=== PATIENT | male | born 1950 | race Caucasian/White ===

== ENCOUNTER 2019-10-27 10:04 | Inpatient (IN) ==
--- NOTE | 2019-10-27 10:58 | PROVIDER DOCUMENTATION ---
This chart was entered by Kavita Peraza Scribe, acting as scribe for Nayeli Falk MD. HPI-General Adult - General Chief Complaint: Diarrhea Stated Complaint: "SICK ALL OVER" Time Seen by Provider: 10/27/19 10:21 Source: patient Allergies/Adverse Reactions: Patient Allergies Allergy/AdvReac Type Severity Reaction Status Date / Time Sulfa (Sulfonamide Allergy RASH Verified 07/12/18 05:40 Antibiotics) Home Medications: Home Medication List Medication Instructions Recorded Confirmed Last Taken Type Carvedilol 12.5 mg PO BID 11/22/17 10/27/19 08/02/18 05:00 History Gabapentin 600 mg PO TID 11/22/17 10/27/19 08/01/18 21:00 History Levothyroxine [Synthroid] 150 microgm PO DAILY 11/22/17 10/27/19 08/01/18 08:00 History Metformin [Glucophage] 2 tab PO BID 11/22/17 10/27/19 08/01/18 21:00 History Losartan Potassium [Cozaar] 1 tab PO DAILY 10/27/19 10/27/19 Unknown History Potassium Chloride E.r. [Klor-Con] 1 tab PO BID 10/27/19 10/27/19 Unknown History Simvastatin 1 tab PO DAILY 10/27/19 10/27/19 Unknown History Torsemide 2 tab PO DAILY 10/27/19 10/27/19 Unknown History - History of Present Illness -Gen Adult Nature of Presenting Problems: 69 y/o male presents to the ED with complaint of diarrhea times seven days, chills, nausea, and diffuse abdominal pain. He states that his diarrhea is watery. Denies any blood. States this has never happened to him before. States he is unable to keep any food down and even water he feels sick with. The patient denies sick contacts and recent travel. Location of Pain/Injury: reports: generalized Onset/Duration: reports: 1 week ago Timing: reports: still present Modifying Factors: worse with: eating Associated Symptoms: reports: diarrhea, nausea. denies: vomiting Recently seen or treated by another doctor?: No Review of Systems - Adult - REVIEW OF SYSTEMS - ADULT Constitutional: reports: no symptoms reported Eyes: reports: no symptoms reported Ears, Nose, Mouth & Throat: reports: no symptoms reported Cardiovascular: denies: chest pain, palpitations, syncope Respiratory: reports: no symptoms reported Gastrointestinal: reports: abdominal pain (epigastric), diarrhea, nausea. denies: vomiting Genitourinary: denies: dysuria, discharge, flank pain, hematuria, hesitency Musculoskeletal: reports: no symptoms reported Integumentary: reports: no symptoms reported Neurological: reports: no symptoms reported Psychiatric: reports: no symptoms reported Endocrine: reports: no symptoms reported Hematologic/Lymphatic: reports: no symptoms reported Allergic/Immunologic: reports: no symptoms reported All Other Systems: Reviewed and Negative Past History - Adult - PAST MEDICAL HISTORY-ADULT Review of Records: reports: Old Records Reviewed, Nursing Assessment Review, Medications Reviewed - IMMUNIZATION STATUS Childhood Immunizations: See Nurse Assessment Flu Vaccine: See Nurse Assessment - SOCIAL HISTORY Smoking: non-smoker Substance Use: none/never Physical Exam-General - PHYSICAL EXAM-ADULT Initial Vital Signs Reviewed: Yes - CONSTITUTIONAL General Appearance: alert, mild distress (uncomfortable appearing) - EYES Eyes: PERRL/EOMI - HEAD, EARS, NOSE, MOUTH & THROAT HENMT: normocephalic/atraumatic, moist mucous membranes - NECK Neck: full range of motion, supple - RESPIRATORY Respiratory: lungs clear, normal breath sounds, no respiratory distress, no accessory muscle use. negative: rales, rhonchi, wheezing - CARDIOVASCULAR Cardiovascular: regular rate, rhythm, no gallop, no murmur - GASTROINTESTINAL (ABDOMEN) Abdominal Exam: normal bowel sounds, soft, tenderness (diffuse, mild). negative: distended, guarding, rebound - MUSCULOSKELETAL Back Exam: normal inspection Extremity: normal inspection - SKIN Integumentary: warm/dry. negative: diaphoresis - NEUROLOGIC Neurologic: grossly normal - PSYCHIATRIC Psych/Mental Status: normal mood/affect, oriented x 3 Progress - PLAN OF CARE/RESULTS Progress/Plan/Lab Results: Vital Signs - 8 hr 10/27/19 10:12 Temperature 98.0 F Pulse Rate 88 Respiratory Rate 22 Blood Pressure 133/78 O2 Sat by Pulse Oximetry 97 Orders Category Date Time Status CBC WITH ELECTRONIC DIFF [HEME] Stat Lab 10/27/19 10:26 Uncollected COMPREHENSIVE METABOLIC PANEL [CHEM] Stat Lab 10/27/19 10:26 Uncollected LIPASE [CHEM] Stat Lab 10/27/19 10:26 Uncollected URINALYSIS W/POSS RFLX CULT [URINALYSIS] Stat Lab 10/27/19 10:26 Uncollected Result Diagrams: 10/27/19 10:43 10/27/19 10:43 - EKG 1 Time of EKG reading by physician:: 12:55 EKG Read and Signed by:: Nayeli Falk EKG Interpretation (*Must complete 3 of following elements*): Abnormal Rate: 79 Rhythm: NSR ST Wave: non-specific ST changes Prior EKG Comparison: unchanged from prior - XRAY 1 XRAY Study: Chest (CHEST-2 VIEWS - 10/27/2019 INDICATION: short of breath COMPARISON: None FINDINGS: The lungs are normally expanded and clear. Heart size and mediastinal contours are normal. No pneumothorax or pleural effusion. There is a left-sided dual-chamber pacemaker in good position. IMPRESSION: Negative exam. Electronically signed by Quinton Rae 10/27/2019 12:00 PM) - CT/MRI 1 CT Study: Abdomen, Pelvis Impression: See EMR Report (CT ABDOMEN/PELVIS W/O CONTRAST - 10/27/2019 INDICATION: colitis COMPARISON: 11/21/2017 FINDINGS: There is some mild peripheral fibrosis in the lung bases. Heart size is normal. There are pacemaker leads in the heart. There is an obstructing stone in the left distal ureter at the level of S2. There is moderate left hydroureteronephrosis. The stone shannon ures about 8 x 7 mm. There is a small nonobstructing right renal stone measuring about 4 mm. There is moderate diverticulosis of the sigmoid colon. No bowel obstruction or inflammation. Urinary bladder, prostate, and rectum are normal. There is mild fatty change of the liver. There are cholecystectomy clips. There are moderate degenerative changes of the spine. No acute or suspicious bony lesion. IMPRESSION: 1. Obstructing left distal ureter stone with moderate hydroureteronephrosis. 2. Small nonobstructing right renal stone. 3. Hepatic steatosis. 4. Diverticulosis coli. This exam was performed using automated exposure control, adjustment of mA or kV according to patient size, and/or use of iterative reconstruction technique Electronically signed by Quinton Rae 10/27/2019 12:59 PM) - CONSULTS/PCP/HOSPITALIST Notification #1 *Consult/PCP/Hospitalist*: HospitalistDolores Time Discussed: 15:46 Reason/Comments: UTI, left obstructing ureteral stone, hyperglycemia Consult Disposition: Admit #2 Consult: Dr Hwang Time Discussed: 15:59 Reason/Comments: Pt established with Dr Robbins, give fluids, treat with an tibiotics Consult Disposition: Admit Departure - Departure Date of Disposition Decision: 10/27/19 Time of Disposition Decision: 15:49 DIAGNOSIS: Ureteral stone, UTI (urinary tract infection), EDSON (acute kidney injury), Diarrhea, Abdominal pain, Hyperglycemia, Hypokalemia, Hyponatremia Disposition: ADMITTED INPATIENT 09 Certified Medical Emergency: Emergent Condition: Stable Additional Instructions: ED Follow Up Instructions: You have been treated by a care provider in the Emergency Department. These instructions are being provided to you so you can have an understanding of how to care for yourself upon discharge. Upon discharge from the Emergency Department, you are responsible for making arrangements for follow-up care by a physician of your choice. Take all prescribed medications as directed. Return to the Emergency Department immediately for any new or worsening symptoms. You may call the Physician Referral phone number at [phone] to obtain a list of Physicians who are taking new patients. Referrals and Follow-Ups: Elton Barry [Primary Care Provider] - - Critical Care Note This patient required my direct & personal management of CC.: No Attestation - Physician/ RAJIV Attestation Patient care was provided by Advanced Practice Provider:: No The physician spent face to face time with patient:: Yes Advanced Practice Provider documentation review:: Supervising physician onsite and consulted in the evaluation and care of this patient. The physician did have a face to face encounter with the patient. This chart was documented by the indicated scribe, (Kavita Peraza Scribe) and accurately reflects the services I performed and decisions made by me, Nayeli Falk MD, as attested by the provider's signature.
[2019-10-27 11:03] LABS: BASO# 0.01 X1000 (0.0-0.2); BASO% 0.1 % (0.0-0.8); EOS% 1.1 % (0.0-10.0); HEMOGLOBIN 15.4 g/dL (14.0-18.0); IMM GRAN# 0.04 X1000 (0.0-0.04); IMM GRAN% 0.4 % (0.0-0.5); LYMPH% 12.9 % (20.5-51.1); MCH 28.6 PG (27-31); MCV 81.6 FL (81-99); MONO# 1.07 X1000 (0.11-0.59); MONO% 11.5 % (1.7-9.3); NEUT# 6.89 X1000 (1.4-6.5); PLT 191 X1000 (130-400); RBC 5.39 XMIL (4.7-6.1); RDW 14.4 % (11.5-14.5); WBC 9.31 X1000 (4.8-10.8)
[2019-10-27 11:41] LABS: ALB/GLOB RATIO 0.8; ALBUMIN 2.7 g/dL (3.5-5.0); CALCIUM 8.8 mg/dL (8.8-10.2); CREATININE 1.9 mg/dL (0.7-1.2); POTASSIUM 2.9 mmol/L (3.5-5.1); TOTAL BILIRUBIN 0.55 mg/dL (0.20-1.00); TOTAL PROTEIN 6.3 g/dL (6.3-8.3)
[2019-10-27] MEDS ORDERED: HUMULIN R IV ONE ×2 (11:47→16:43)
[2019-10-27] MEDS ORDERED: NS 1,000 ML IV ONE ×4 (11:47→19:07)
[2019-10-27 11:48] LABS: URINE SOURCE CLEAN CATCH
[2019-10-27] MEDS ORDERED: KLOR-CON PO ONE (11:48)
[2019-10-27 11:51] LABS: BILIRUBIN URINE NEGATIVE (NEGATIVE); BLOOD URINE MODERATE (NEGATIVE); COLOR YELLOW; GLUCOSE URINE >1000 mg/dL (NEGATIVE); KETONE URINE NEGATIVE (NEGATIVE); LEUKOCYTES URINE MODERATE (NEGATIVE); NITRITE URINE NEGATIVE (NEGATIVE); PH URINE 6.5; PROTEIN URINE 300 mg/dL (NEGATIVE); SP GRAVITY URINE 1.023; TURBIDITY URINE CLEAR (CLEAR); UR EPITHELIAL CELLS <10 /HPF (<10); URINE BACTERIA NEGATIVE /HPF; URINE RBC <10 /HPF (<10); URINE WBC TNTC /HPF (<10); UROBILINOGEN URINE NORMAL (NORMAL)
--- NOTE | 2019-10-27 12:03 | Diag Imaging Result Doc PS360 ---
CHEST-2 VIEWS - 10/27/2019 INDICATION: short of breath COMPARISON: None FINDINGS: The lungs are normally expanded and clear. Heart size and mediastinal contours are normal. No pneumothorax or pleural effusion. There is a left-sided dual-chamber pacemaker in good position. IMPRESSION: Negative exam. Electronically signed by Quinton Rae 10/27/2019 12:00 PM
[2019-10-27] MEDS: ROCEPHIN 1 GM in NS 50 ML IV SCH (12:40)
[2019-10-27 12:59] LABS: BE 3.5 mmoll (-2.0-2.0); BLOOD TYPE VENOUS; HCO3-(ACT) 26.3 mmoll (22-27); PCO2(98.6) 40 mmHg (40-60); PO2(98.6) 26 mmHg (30-55); SAMPLE BLOOD; SAO2 54.6 % (40.0-85.0); pH(98.6) 7.45 (7.32-7.43)
--- NOTE | 2019-10-27 13:02 | Diag Imaging Result Doc PS360 ---
CT ABDOMEN/PELVIS W/O CONTRAST - 10/27/2019 INDICATION: colitis COMPARISON: 11/21/2017 FINDINGS: There is some mild peripheral fibrosis in the lung bases. Heart size is normal. There are pacemaker leads in the heart. There is an obstructing stone in the left distal ureter at the level of S2. There is moderate left hydroureteronephrosis. The stone measures about 8 x 7 mm. There is a small nonobstructing right renal stone measuring about 4 mm. There is moderate diverticulosis of the sigmoid colon. No bowel obstruction or inflammation. Urinary bladder, prostate, and rectum are normal. There is mild fatty change of the liver. There are cholecystectomy clips. There are moderate degenerative changes of the spine. No acute or suspicious bony lesion. IMPRESSION: 1. Obstructing left distal ureter stone with moderate hydroureteronephrosis. 2. Small nonobstructing right renal stone. 3. Hepatic steatosis. 4. Diverticulosis coli. This exam was performed using automated exposure control, adjustment of mA or kV according to patient size, and/or use of iterative reconstruction technique Electronically signed by Quinton Rae 10/27/2019 12:59 PM
[2019-10-27] MEDS ORDERED: MORPHINE IV ONE (14:24)
[2019-10-27] MEDS ORDERED: ZOFRAN IV PRN (16:41)
[2019-10-27] MEDS ORDERED: D50W SYRINGE IV PRN (16:43)
[2019-10-27] MEDS ORDERED: MAGNESIUM SULFATE 2 GM/S.W.I. 2 GM/50 ML IVPB IV PRN (16:43)
[2019-10-27] MEDS ORDERED: SODIUM PHOSPHATE 30 MMOL in D5W 250 ML IV PRN (16:43)
[2019-10-27] MEDS ORDERED: POTASSIUM CHLORIDE 20 MEQ/SWI 20 MEQ/100 ML IVPB IV PRN (16:43)
[2019-10-27] MEDS ORDERED: SODIUM BICARBONATE 8.4% 100 MEQ in STERILE WATER INJ. 500 ML IV PRN (16:43)
[2019-10-27] MEDS: NS 1,000 ML IV SCH ×2 (16:45→20:22)
[2019-10-27] MEDS ORDERED: HUMULIN R 100 UNIT in NS 100 ML IV SCH (16:45)
[2019-10-27 17:47] LABS: ALBUMIN 2.6 g/dL (3.5-5.0); CALCIUM 8.8 mg/dL (8.8-10.2); CREATININE 1.8 mg/dL (0.7-1.2); MAGNESIUM 1.6 mg/dL (1.5-2.7); POTASSIUM 3.4 mmol/L (3.5-5.1); POTASSIUM 3.5 mmol/L (3.5-5.1)
--- NOTE | 2019-10-27 18:35 | HISTORY AND PHYSICAL ---
CHIEF COMPLAINT: Abdominal pain and diarrhea. HISTORY OF PRESENT ILLNESS: This is a 69-year-old gentleman with a prior history of kidney stones, hypertension, hypothyroid, as well as diabetes mellitus. He presented to the emergency room complaining of abdominal pain, diarrhea, nausea, and sweating for the past seven days. He denied any chest pain or palpitations. CT scan of the abdomen and pelvis without contrast revealed an 8 x 7 mm left distal ureter obstructing stone with moderate left hydroureteronephrosis as well as a 4 mm nonobstructing right renal stone. He was found to have a creatinine of 1.9, which is most likely postobstructive. Initial blood sugar was 609. Lab work is consistent with HHNK. He has received IV hydration. He has been started on an insulin drip with a DKA protocol. He is being admitted to [facility] for further evaluation and treatment. PAST MEDICAL HISTORY: 1. Diabetes mellitus. 2. Hypertension. 3. Hypothyroid. 4. Hyperlipidemia. 5. History of renal stones. PAST SURGICAL HISTORY: TURP and left foot surgery. SOCIAL HISTORY: He denies alcohol, tobacco, or illicit drug use. ALLERGIES: Sulfa which causes a rash. FAMILY HISTORY: Positive for diabetes and hypertension. HOME MEDICATIONS: A list will be obtained by the nursing staff and once verified will review and restart as appropriate. REVIEW OF SYSTEMS: Discussed with patient with pertinent positives stated in the HPI. He denied any syncope or dizziness, any chest pain or palpitations, shortness of breath, any fevers, any vomiting, constipation, any black or bloody vomitus or stools, any hematuria, dysuria, frequency, or urgency. PHYSICAL EXAMINATION: GENERAL: This is a 69-year-old gentleman who is lying on the stretcher in the emergency room in no distress. VITAL SIGNS: Blood pressure is 153/84 with a heart rate of 94, respirations are 20, temperature is 100.1 degrees with room air saturation of 95. EYES: Pupils equal, round, react to light. EOMs are intact. Sclerae are anicteric. HEENT: Head is normocephalic, atraumatic. Mucous membranes are moist. NECK: Supple with trachea midline. CARDIOVASCULAR: Regular rate and rhythm. S1 and S2 appreciated. Calves are nontender bilateral with peripheral pulses palpable x4 extremities. PULMONARY: Breath sounds are clear with no increased work of breathing noted. Chest rises and falls symmetric with respiration. Chest wall is nontender to palpation. GASTROINTESTINAL: Abdomen is large. It is soft. He does have some diffuse tenderness with bowel sounds in all four quadrants. GENITOURINARY: No CVA or suprapubic tenderness. NEUROLOGIC: He is alert and oriented x3. SKIN: Warm and dry. LABS: WBC is 9 with hemoglobin 15.4, hematocrit 44, and platelets of 191,000. Sodium is 128, potassium 2.9, CO2 is 23, anion gap is 18 with a BUN of 20, creatinine 1.9, and glucose of 609. Urinalysis reveals moderate blood with too numerous to count white blood cells and less than 10 microscopic red blood cells and epithelial cells. Urine culture is pending. IMAGING: Chest x-ray revealed negative exam. CT of the abdomen and pelvis without contrast revealed an 8 x 7 mm obstructing left distal ureter stone with moderate hydroureteronephrosis, 4 mm right nonobstructing renal stone, and diverticulosis. ASSESSMENT AND PLAN: 1. Obstructing distal left ureteral stone with moderate hydroureteronephrosis. 2. Acute kidney injury, which is most likely postobstructive along with intravascular volume depletion secondary to elevated blood sugar. 3. History of hypertension. 4. Hypokalemia. 5. Diabetes mellitus type 2 with hyperglycemia. 6. Hyperosmolar hyperglycemic nonketotic syndrome. 7. Hyponatremia which is relative due to blood sugar. 8. Urinary tract infection. 9. Hypothyroid. PLAN: The patient will be admitted to a PVC unit. on DKA protocol. strict intake and output with daily weights. telemetry. consult Urology n.p.o. after midnight. CBC and a renal profile in the morning. Blood cultures and urine cultures are pending. Rocephin with further antibiotics culture driven. identify his home medication and continue as appropriate. morphine IV for pain with Zofran for nausea. The patient was examined and plan was discussed with Dr. Pierce. Further treatments pending hospital course. Dictated by KOLE Zhang for Jyoti Pierce MD cc: KOLE Zhang MD [facility]
[2019-10-27] MEDS: MORPHINE IV PRN (19:21)
[2019-10-27] MEDS: COREG PO SCH (21:05)
[2019-10-27 21:43] LABS: CALCIUM 8.1 mg/dL (8.8-10.2); CREATININE 1.8 mg/dL (0.7-1.2); MAGNESIUM 1.5 mg/dL (1.5-2.7); PHOSPHORUS 1.4 mg/dL (2.7-4.5); POTASSIUM 3.2 mmol/L (3.5-5.1)
[2019-10-28 01:47] LABS: CALCIUM 8.1 mg/dL (8.8-10.2); CREATININE 1.6 mg/dL (0.7-1.2); MAGNESIUM 2.2 mg/dL (1.5-2.7)
[2019-10-28] MEDS: NS 1,000 ML IV SCH ×3 (04:02→17:57)
[2019-10-28 05:14] LABS: BASO# 0.03 X1000 (0.0-0.2); BASO% 0.3 % (0.0-0.8); EOS# 0.13 X1000 (0.0-0.7); EOS% 1.5 % (0.0-10.0); HEMATOCRIT 39.6 % (42.0-52.0); HEMOGLOBIN 13.6 g/dL (14.0-18.0); IMM GRAN# 0.06 X1000 (0.0-0.04); IMM GRAN% 0.7 % (0.0-0.5); LYMPH# 1.43 X1000 (1.2-3.4); MCH 28.7 PG (27-31); MCHC 34.3 g/dL (33-37); MCV 83.5 FL (81-99); MONO# 1.01 X1000 (0.11-0.59); MONO% 11.3 % (1.7-9.3); MPV 10.7 FL (7.4-10.4); NEUT% 70.2 % (42.2-75.2); PLT 171 X1000 (130-400); RBC 4.74 XMIL (4.7-6.1); RDW 14.6 % (11.5-14.5); WBC 8.96 X1000 (4.8-10.8)
[2019-10-28 05:35] LABS: ALBUMIN 2.4 g/dL (3.5-5.0); CREATININE 1.6 mg/dL (0.7-1.2); PHOSPHORUS 1.9 mg/dL (2.7-4.5); POTASSIUM 3.4 mmol/L (3.5-5.1)
[2019-10-28] MEDS: SYNTHROID PO SCH (06:04)
[2019-10-28] MEDS ORDERED: POTASSIUM PHOSPHATE 30 MMOL in NS 250 ML IV ONE (06:32)
[2019-10-28] MEDS ORDERED: LEVEMIR SUBQ ONE (07:42)
--- NOTE | 2019-10-28 07:52 | EKG Report ---
Test Performed on : 10/27/2019 12:52:42 PM Test Reason : ED. NO EKG ORDER FOR MUSE Blood Pressure : / mmHG Vent. Rate : 079 BPM Atrial Rate : 079 BPM P-R Int : 174 ms QRS Dur : 126 ms QT Int : 380 ms P-R-T Axes : 039 054 -29 degrees QTc Int : 435 ms Sinus rhythm. with frequent premature ventricular complexes. Nonspecific intraventricular block T wave abnormality, consider inferior ischemia T wave abnormality, consider anterolateral ischemia Abnormal ECG When compared with ECG of 11-JUL-2018 12:54, premature ventricular complexes. are now present ST now depressed in Anterior leads T wave inversion now evident in Inferior leads T wave inversion now evident in Anterolateral leads Unconfirmed Result
[2019-10-28] MEDS: NEURONTIN PO SCH ×3 (08:04→17:11)
[2019-10-28] MEDS: COZAAR PO SCH (08:04)
[2019-10-28] MEDS: COREG PO SCH ×2 (08:04→20:55)
--- NOTE | 2019-10-28 08:04 | CONSULTATION ---
DATE OF CONSULTATION: 10/28/2019 ATTENDING AND REFERRING PHYSICIAN: Hospitalist. HISTORY OF PRESENT ILLNESS: This 69-year-old male with long history of renal lithiasis developed severe left flank pain. Evaluation revealed an 8 mm left distal ureteral stone with moderate obstruction. He was also noted to have increased renal insufficiency and a serum glucose level of 609. The patient states he still has left flank pain. PAST MEDICAL HISTORY: Diabetes, hypothyroidism, elevated cholesterol, hypertension. CURRENT MEDICATIONS: Documented on the chart. PAST SURGICAL HISTORY: Shockwave lithotripsy of a right renal stone, ureteroscopy and stone extraction, hernia surgery, toenail removal of the each great toe, transurethral resection of the prostate. SOCIAL HISTORY: No tobacco or alcohol use. ALLERGIES: He is allergic to sulfa. REVIEW OF SYSTEMS: He states usually he is in good health. He states he started having problems several weeks ago and just waited too long before he came in. He denies any problems with chest pains, recent pulmonary or bowel problems. He has no history of stroke or seizures. PHYSICAL EXAMINATION: General: A normally developed, obese, age apparent, white male, oriented in all ways and cooperative. HEENT: Normal for age. Lungs: Clear. Cardiovascular: Regular rate and rhythm. Abdomen: Protuberant, soft, mild diffuse tenderness throughout. Increased on the left side. Mild left CVA tenderness. Right side is normal. : Uncircumcised male. Both testes are down and palpably normal. Small bilateral hydroceles. Rectal: Deferred until surgery. Extremities: No clubbing, cyanosis, or edema. Neurologic: No focal deficits. LABORATORY DATA: CBC has a white count of 8.96, a hemoglobin of 13.6, hematocrit 39.6 and platelets are 171,000. Serum electrolytes have a sodium of 139, potassium 3.4, chloride 103, bicarb 20, BUN 20, creatinine 1.6. At admission his creatinine was 1.9. His baseline is around 1.1. A CT stone search is as noted in the history of present illness. IMPRESSION: 1. Left distal ureteral stone with left hydronephrosis and pain. 2. Diabetes. 3. Renal insufficiency. RECOMMEND: Cystoscopic exam, left ureteroscopy, laser lithotripsy of stone, basket extraction of fragments, and place the left double-J stent if needed. This planned procedure, benefits versus risks, and possible complications, including, but not limited to, bleeding, infection, not being able to remove the stone, need for further stone surgery, damage to the ureter with need for further surgery was discussed. He seems to understand and desires to proceed. cc: Italo Odom MD
[2019-10-28] MEDS: MORPHINE IV PRN (08:10)
[2019-10-28 09:49] LABS: CALCIUM 8.1 mg/dL (8.8-10.2); CREATININE 1.5 mg/dL (0.7-1.2); POTASSIUM 3.2 mmol/L (3.5-5.1)
[2019-10-28] MEDS: HUMULIN R SUBQ SCH ×4 (10:06→20:55)
[2019-10-28] MEDS ORDERED: DIPRIVAN 1% ONE (12:04)
[2019-10-28] MEDS ORDERED: FENTANYL ONE (12:13)
[2019-10-28] MEDS: ROCEPHIN 1 GM in NS 50 ML IV SCH (12:15)
[2019-10-28] MEDS ORDERED: DECADRON ONE (12:26)
[2019-10-28] MEDS ORDERED: EPHEDRINE ONE (12:26)
[2019-10-28] MEDS ORDERED: ZOFRAN ONE (12:26)
--- NOTE | 2019-10-28 13:44 | Diag Imaging Result Doc PS360 ---
EXAM: Fluoroscopy CYSTO INDICATION: LEFT STONE EXTRACTION, STENT PLACEMENT TECHNIQUE: COMPARISON: None. FINDINGS: 14 spot fluoroscopic images were provided, which were performed during left ureteral stent placement by Dr. Italo Odom. On the final image, the newly placed left ureteral stent is identified in the expected position. IMPRESSION: As above. Please correlate with live fluoroscopic imaging. Electronically signed by Ismael Dubois 10/28/2019 1:42 PM
[2019-10-28] MEDS: DILAUDID ONE ×2 (13:49→13:59)
[2019-10-28] MEDS: LABETALOL IV PRN (15:20)
--- NOTE | 2019-10-28 17:26 | PROGRESS NOTE ---
DATE: 10/28/2019 SUBJECTIVE: The patient is resting comfortably in bed. He is scheduled for a urologic procedure today. OBJECTIVE: Vital Signs: Temperature 97.6 degrees, blood pressure 161/93, heart rate 66, respirations 20, and O2 saturation 96% on room air. General: This is an overweight male, lying in bed in no acute distress. Heart: S1, S2. Normal. Regular rate and rhythm. Lungs: Equal air entry bilaterally. No wheezing. No rales. Abdomen: Positive bowel sounds. Soft, nontender, nondistended. Extremities: No edema, no cyanosis. Neurologic: The patient is alert and oriented x4. LABS: Hemoglobin 13, hematocrit 39, platelets 171. Sodium 139, potassium 3.4, chloride 103, CO2 of 20, BUN 20, creatinine 1.6, glucose 248, magnesium 2, phosphorus 1.9. ASSESSMENT AND PLAN: 1. Left distal ureteral stone with left hydronephrosis. The patient is scheduled to undergo cystoscopy with ureteral stent placement. 2. Hyperosmolar hyperglycemic nonketotic syndrome (HHNS). The patient has been transitioned off of the insulin drip and is now on subcutaneous insulin with sliding scale insulin coverage. 3. Hypertension. Continue on Coreg and Cozaar. 4. Acute kidney injury. Slowly improving. This is likely secondary to urinary obstruction. Continue with gentle IV fluid hydration. We will monitor the urine output closely. 5. Obesity. Aware. 6. Hypothyroidism. Continue on Synthroid. 7. Diabetic neuropathy. Continue on Neurontin. 8. Hypokalemia. Will replace the potassium. 9. Hypophosphatemia. Will replace the phosphorus. 10. Deep vein thrombosis prophylaxis. We will start the patient on heparin. cc: Jyoti Pierce MD [facility]
[2019-10-28] MEDS ORDERED: VANCOMYCIN IV PER PHARMACY MISC SCH (19:00)
[2019-10-28] MEDS ORDERED: VANCOMYCIN 2,000 MG in NS 500 ML IV ONE (20:00)
--- NOTE | 2019-10-28 20:45 | OPERATIVE NOTE ---
PROCEDURE DATE: 10/28/2019 SURGEON: Italo Odom MD. PREOPERATIVE DIAGNOSIS: Severe left flank pain with a left distal ureteral stone. POSTOPERATIVE DIAGNOSIS: 1. Severe left flank pain with a left distal ureteral stone. 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 PROCEDURE PERFORMED: Cystoscopic exam, ureteroscopy of the left upper ureter, left ureteroscopy of the left upper pole ureter with laser lithotripsy, basket extraction of fragments, and placement of the double-J stent into the left upper pole ureter. ANESTHESIA: General via laryngeal mask. FINDINGS: Cystoscopic exam: Urethra-greater than 21 [place] without stricture. Prostate-status post TURP with wide open channel. Bladder-normal right ureteral orifice. On the left side he had 2 ureteral orifices consistent with a duplicated left renal collecting system. Both UOs were on the trigone. No papillary lesions. No trabeculations. Left lower pole ureter normal without any stone seen. Left upper pole ureter with an approximate 8 mm stone with significant obstruction. Rectal exam reveals a prostate of about 40 g, smooth, and symmetric. INDICATION FOR PROCEDURE: This 69-year-old male with history of renal lithiasis developed severe left flank pain. Evaluation revealed an 8 mm left distal stone but no mention was made of the duplicated system. DESCRIPTION OF PROCEDURE: After informed consent was obtained from patient, him receiving IV antibiotics, he was taken to the main OR cystoscopy room, placed in supine position. General anesthesia via laryngeal mask was achieved. He was then placed in the low lithotomy position and prepped and draped in the usual sterile fashion for cystoscopic exam. A 21-[place] Irish sheath cystoscope was passed the patient's urethra, prostate, and bladder with findings noted above. A 0.035 ZIPwire was passed through the cystoscope and engaged the left upper ureteral orifice which was not seen at that time. The ZIPwire was passed up into the kidney to act as a safety wire. The cystoscope was removed. A 7-[place] Irish Storz semi-rigid ureteroscope was advanced through the patient's urethra, prostate, and in the bladder. A 0.035 Sensor wire was passed through the ureteroscope and into the ureter. The ureteroscope was advanced over the Sensor wire and all the way up to the UPJ area with no stone being found. The ureteroscope was removed. The ZIPwire was removed. The bladder was thoroughly inspected and the 2nd ureteral orifice was found on the left side being closer to the midline and lower than the first ureter seen. The ZIPwire was passed through the ureteral orifice and advanced up to the kidney. The 7-[place] Storz semi-rigid ureteroscope was placed and the 0.035 Sensor wire was passed through the ureteroscope and up into the ureter. The ureteroscope was advanced over the Sensor wire, beneath the ZIPwire up to the stone. The Sensor wire was removed. A 365 micron laser fiber was placed. The laser was set at 8 hertz and 8 carvajal and a total of 459 joules was used to fragment the stone. After fragmentation, a 4-wire Nitinol basket was placed and stone fragments were removed with the larger ones being sent to Pathology for analysis. The ureteroscope was advanced up into the left proximal ureter. No further stones or fragments were visualized. The ureteroscope was removed. A 6-[place] Irish, 26 cm double-J stent was passed over the ZIPwire and up into the upper pole kidney. The renal end was verified by fluoroscopic exam, bladder end directly visualized. Bladder was drained. Cystoscope was removed. Stent removal string was securely taped to the penile shaft. Rectal exam was performed. He tolerated the procedure well. Estimated blood loss 1 mL. He was taken to the recovery room in good condition. cc: Italo Odom MD
[2019-10-28] MEDS: HEPARIN SUBQ SCH (20:55)
[2019-10-28] MEDS: LEVEMIR SUBQ SCH (20:55)
[2019-10-28] MEDS: NORVASC PO SCH (20:56)
[2019-10-28 22:37] LABS: ALBUMIN 2.5 g/dL (3.5-5.0); CALCIUM 7.8 mg/dL (8.8-10.2); CREATININE 1.4 mg/dL (0.7-1.2); PHOSPHORUS 2.8 mg/dL (2.7-4.5); POTASSIUM 3.3 mmol/L (3.5-5.1)
[2019-10-29] MEDS: HUMULIN R SUBQ SCH ×3 (00:46→08:49)
[2019-10-29] MEDS: DILAUDID ONE (01:43)
[2019-10-29 05:43] LABS: HEMATOCRIT 36.5 % (42.0-52.0); HEMOGLOBIN 12.3 g/dL (14.0-18.0); MCH 29.1 PG (27-31); MCHC 33.7 g/dL (33-37); MCV 86.3 FL (81-99); MPV 10.8 FL (7.4-10.4); RBC 4.23 XMIL (4.7-6.1); WBC 6.83 X1000 (4.8-10.8)
[2019-10-29 06:06] LABS: ALBUMIN 2.3 g/dL (3.5-5.0); CALCIUM 7.9 mg/dL (8.8-10.2); CREATININE 1.2 mg/dL (0.7-1.2); PHOSPHORUS 2.8 mg/dL (2.7-4.5)
[2019-10-29] MEDS: NS 1,000 ML IV SCH (06:25)
[2019-10-29] MEDS: SYNTHROID PO SCH (06:25)
[2019-10-29] MEDS: NORVASC PO SCH ×2 (08:50→20:50)
[2019-10-29] MEDS: NEURONTIN PO SCH ×3 (08:50→17:47)
[2019-10-29] MEDS: LEVEMIR SUBQ SCH (08:50)
[2019-10-29] MEDS: COREG PO SCH ×2 (08:51→20:50)
[2019-10-29] MEDS: HEPARIN SUBQ SCH ×2 (08:52→20:50)
[2019-10-29] MEDS: COZAAR PO SCH (08:52)
[2019-10-29] MEDS: KLOR-CON PO SCH ×2 (12:43→16:11)
--- NOTE | 2019-10-29 13:13 | PROGRESS NOTE ---
DATE: 10/29/2019 INTERVAL HISTORY: Mr. Castillo underwent ureteroscopy, lithotripsy and basket stone extraction of left upper ureter yesterday which he tolerated well. His hypokalemia is currently being repleted. His acute kidney injury is improving. His urine and blood cultures are growing gram-positive cocci. Currently, Mr. Castillo is feeling much better. He denies any chest pain, shortness of breath, nausea, vomiting. He continues to have hematuria. His abdominal pain has significantly improved. VITALS: Temperature 97.7 degrees, pulse 74, respiratory rate 19, blood pressure 146/70, saturating 97% room air. PHYSICAL EXAMINATION: General: Obese not in any acute distress. Oral cavity is moist. Lungs: Air entry bilaterally equal. No wheeze, rhonchi, crackles. Cardiovascular: S1, S2 normal. No murmur or gallop. Abdomen: Soft. Only mild tenderness in left lower quadrant. Active bowel sounds. He has mild lower extremity edema. Neurologic: He is alert and oriented x3. LABORATORY DATA: Suggestive of normocytic anemia, normal platelet count, hypokalemia currently being repleted, improving BUN and creatinine. Hyperglycemia is currently under acceptable range. Microbiology: Blood culture and urine culture are growing gram-positive cocci. IMAGING: No new imaging. ASSESSMENT AND PLAN: 1. Left distal ureteral stone with left hydronephrosis status post cystoscopy, lithotripsy, basket stone extraction and left double-J ureteric stent on 10/28/2019. He continues to have a degree of hematuria. He also has a right-sided 4 mm stone in the kidney which is nonobstructing. He would need outpatient Urology follow-up. 2. Acute complicated urinary tract infection due to gram-positive organism leading to gram- positive bacteremia. Continue intravenous vancomycin. Follow up final blood culture and urine culture results. Follow up echocardiogram to rule out valvular vegetation. 3. Acute kidney injury, likely postobstructive due to ureteric stone, now improved. Follow up BMP. 4. History of symptomatic bradycardia s/p pacemaker: Follow up TTE. 4. Uncontrolled diabetes mellitus type 2 with hyperglycemia on presentation, currently well controlled. I will decrease his insulin glargine dose and will start him on sliding scale insulin with meals and at nighttime. His potassium is currently being repleted. 5. Essential hypertension. Continue home carvedilol and losartan, and add amlodipine. 6. Others. Continue levothyroxine for hypothyroidism. DISPOSITION: I will continue to monitor patient inside the hospital. Plan of care discussed with him. His questions have been answered. cc: Pradip Wang MD MTDD
[2019-10-29] MEDS: HUMALOG SUBQ SCH ×2 (15:53→20:47)
--- NOTE | 2019-10-29 16:59 | ECHO REPORT ---
ORDER DATE: 10/29/2019 INDICATIONS: Evaluate for vegetation. FINDINGS: This is an extremely difficult study with poor images. 1. Right atrium appears normal in size. 2. Mild tricuspid regurgitation. Insufficient data to estimate RV systolic pressure. 3. Normal RV size and systolic function. 4. No significant pulmonic insufficiency. 5. Normal left atrial size with a volume index of 14.8. 6. No mitral valve prolapse. No significant mitral regurgitation. 7. Normal LV size. End-diastolic dimension of 4.9 cm. Mild left ventricular hypertrophy with interventricular septal wall thickness of 1.2 cm. Normal LV systolic function with an estimated EF greater 55%. Wall motion analysis cannot be performed in this patient secondary to poor visualization of the endocardial borders. 8. Aortic valve opens well. No evidence of stenosis or insufficiency. 9. The aorta appears normal in visualized segments. 10. No pericardial effusion seen. 11. There does not appear to be any clear evidence of valvular vegetation that is seen on this study, but it is a very poor quality. cc: MD Pradip Grossman MD
[2019-10-29] MEDS ORDERED: VANCOMYCIN 1,300 MG in NS 250 ML IV SCH (20:00)
[2019-10-30 05:56] LABS: HEMOGLOBIN A1C 11.8 % (4.8-6.0)
[2019-10-30 06:10] LABS: CALCIUM 8.3 mg/dL (8.8-10.2); CREATININE 1.2 mg/dL (0.7-1.2); POTASSIUM 3.3 mmol/L (3.5-5.1)
[2019-10-30] MEDS: HUMALOG SUBQ SCH ×4 (06:29→20:42)
[2019-10-30] MEDS: SYNTHROID PO SCH (06:32)
[2019-10-30] MEDS: KLOR-CON PO SCH ×2 (06:56→10:40)
[2019-10-30] MEDS ORDERED: HUMALOG SUBQ SCH ×2 (07:00→08:12)
--- NOTE | 2019-10-30 08:06 | PROGRESS NOTE ---
DATE: 10/30/2019 INTERVAL HISTORY: No acute events overnight. His blood pressure was a little elevated to 180/80. His hemoglobin A1c came elevated to 11.8. He is subjectively feeling short of breath. Denies any chest pain or cough. He states he had a pacemaker placed around 2012 for what sounds like bradycardia. He also takes diuretics at home for lower extremity edema. We discussed about uncontrolled diabetes, need for continuous IV antibiotics, probable need for transesophageal echocardiogram, and I answered all of his questions. VITALS: Temperature 98.8 degrees, pulse 77, respiratory rate 19, blood pressure 180/80. He is saturating 98% on room air. PHYSICAL EXAMINATION: He is not in any acute distress. Oral cavity is moist. His air entry is bilaterally equal. No wheeze or rhonchi. Mild crackles in infrascapular region. S1, S2 normal. No murmur, rub, or gallop. Left-sided chest wall has a pacemaker. The site appears not inflamed or tender. Abdomen is obese, soft, nontender. He has bilateral lower extremity edema. He is alert and oriented x3. LABS: Suggestive of hypokalemia which is currently being repleted. Stable kidney function. 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 Repeat blood cultures are in lab. Initial blood culture growing Staphylococcus epidermidis which is resistant to methicillin and sensitive to vancomycin. IMAGING: Echocardiogram yesterday had ejection fraction of 55%. There was no clear evidence of valvular vegetation. However, it was a poor quality study. ASSESSMENT AND PLAN: 1. Left distal ureteral stone with left hydronephrosis, status post cystoscopy, lithotripsy, basket stone extraction, and left double-J ureteric stent on October 28. His urine has cleared. He also has a right-sided, 4 mm stone which is nonobstructing and prior history of nephrolithiasis. He would need outpatient urology followup for stent removal in the future. 2. Acute complicated urinary tract infection due to Staphylococcus epidermidis leading to Staphylococcus epidermidis bacteremia. Continue intravenous vancomycin. Transthoracic echocardiogram was of poor quality. I will consult infectious disease team for need for long- term antibiotics. There were no valvular vegetations on thoracic echocardiogram. 3. Acute kidney injury due to postobstructive renal failure due to ureteric stone, now improved. 4. History of symptomatic bradycardia, status post pacemaker. Aware. He may need long-term intravenous antibiotics. I will follow up with blood cultures tomorrow. 5. Uncontrolled diabetes mellitus type 2 with elevated A1c. He would likely need insulin at the time of discharge. Considering his hypoglycemia, I will decrease his Lantus dose and start him on mealtime insulin. 6. Essential hypertension. Continue home carvedilol, losartan, and amlodipine, and adjust according to his blood pressure response. I will give him another 24 hours to see if blood pressure goes down on amlodipine. 7. Hypothyroidism. Continue levothyroxine. Follow up with TSH and free T4. 8. Deep venous thrombosis prophylaxis. He is on heparin. I will change it to enoxaparin. 9. Disposition. I will continue to monitor patient in PVC and potentially transfer him to medical floor. Plan of care discussed with him. His questions have been answered. cc: Pradip Wang MD
[2019-10-30] MEDS: NEURONTIN PO SCH ×3 (08:50→16:58)
[2019-10-30] MEDS: LOVENOX SUBQ SCH (08:50)
[2019-10-30] MEDS: COREG PO SCH ×2 (08:51→20:42)
[2019-10-30] MEDS: NORVASC PO SCH ×2 (08:51→20:42)
[2019-10-30] MEDS: DEMADEX PO SCH ×2 (08:51→09:50)
[2019-10-30] MEDS: COZAAR PO SCH (08:51)
--- NOTE | 2019-10-30 08:59 | INFECTIOUS DISEASE CONSULT REP ---
DATE: 10/30/2019 CONCLUSION: The patient has a Staphylococcus epidermidis bacteremia which I think originated from a Staphylococcus epidermidis urinary tract infection. The patient had a stone in the left ureter which resulted in ureteronephrosis. RECOMMENDATIONS: I am going to switch the patient from vancomycin to daptomycin. Some of the side effects of daptomycin including rash, diarrhea, and muscle toxicity have been explained to the patient, who agrees with treatment. I told the patient that while he is on daptomycin, I am going to withhold the simvastatin which the patient takes for hyperlipidemia because both the simvastatin and the daptomycin can cause muscle necrosis. I told the patient, furthermore, that once he is done with treatment with daptomycin that he can resume his simvastatin. My plan is to treat the patient for 6 weeks with daptomycin because the patient's pacemaker may have become infected while the patient was bacteremic. After that 6 week period, I may put the patient on an oral antibiotic to prevent any flare-up of the infection again. DISCUSSION: The patient said that approximately 10 days ago, he started having left flank pain as well as dysuria and fever. His CT scan shows that the patient had a left ureteral stone with resulting hydroureteronephrosis. The patient has had surgery performed by Dr. Odom who did a lithotripsy of the stone and put in a stent. The patient's studies thus far show a CBC with a white count of 6830, hemoglobin 12.3, and platelet count 151,000. Creatinine is 1.2. GFR is 60. Both blood and urine are growing Staphylococcus epidermidis. The patient's echocardiogram showed no valvular vegetation. Chest x-ray showed clear lung almonte. PAST MEDICAL HISTORY/REVIEW OF SYSTEMS: Eyes and Ears: The patient has decreased hearing and vision. Neck: No stiffness. Respiratory: The patient tells me that in the past year, he has had an intermittent cough but he does not bring up any sputum. Cardiac: No chest pain or palpitations. However, the patient does have a permanent pacemaker in place on the left side. : See present illness. GI: The patient told me that a week ago, he had some loose stools but this has cleared. Bones, Joints, Muscles: No joint swelling. Also, his muscles are not tender. Neurologic: The patient says that in the past year, he has gotten progressively weaker. He has not had any seizures and also his sensory function is intact. PREVIOUS HOSPITALIZATIONS AND OPERATIONS: The patient during this admission had surgery performed by Dr. Odom as mentioned above. Prior to that, the patient has had placement of a permanent pacemaker on the left side. The patient has had surgery for benign prostatic hypertrophy and he has had foot surgery for 2 spurs. MEDICAL DISEASES: Positive for diabetes mellitus, hypertension, myocardial infarction, renal calculi, hypercholesterolemia, and some type of cardiac problem that required that the patient have a pacemaker placed, which it was, and hypothyroidism. INFECTIOUS DISEASE HISTORY: Positive for urinary tract infection. Negative for pneumonia. FAMILY HISTORY: Positive for hypertension, myocardial infarction, and cancer. SOCIAL HISTORY: [place] is . He lives alone. He is retired from working at [employer]. He does not smoke cigarettes, drink alcoholic beverages, or abuse drugs. HOME MEDICATIONS: Include carvedilol, gabapentin, Synthroid, Cozaar, Glucophage, simvastatin, and torsemide. PHYSICAL EXAMINATION: Vital Signs: Temperature is 98.8 degrees, pulse 77, respirations 19, blood pressure is 185/85. The patient is 5 feet 7 inches tall and weighs 217 pounds. General: This is an obese, ill-appearing, elderly male. He is in no acute distress. Head, Eyes, Ears, Nose, and Throat: He can hear my spoken words and see near objects. I did not notice any white patches in his mouth. Neck: No meningismus. Lungs: Clear to auscultation. Cardiovascular: Heart rate is regular. I did not hear a murmur. Thorax: The patient, in the upper left part of his chest,0 has a permanent pacemaker in place. The site is not erythematous, swollen, or tender. Neurologic: The patient is alert. He can move his extremities. There is no tremor. His memory as regarding his medical history was intact. Integument: No rash noted. Thank you for the consult. cc: Akbar Moreno MD
[2019-10-30] MEDS ORDERED: LEVEMIR SUBQ SCH ×2 (09:00)
[2019-10-30] MEDS: ULTRAM PO PRN (09:52)
[2019-10-30] MEDS: CUBICIN 600 MG in NS 100 ML IV SCH (10:15)
[2019-10-30] MEDS ORDERED: LEVSIN-SL SL PRN (11:33)
[2019-10-30] MEDS: MORPHINE IV PRN (12:38)
[2019-10-30] MEDS: LEVEMIR SUBQ SCH (20:42)
[2019-10-31] MEDS: SYNTHROID PO SCH (06:29)
[2019-10-31] MEDS: HUMALOG SUBQ SCH ×4 (06:33→21:28)
[2019-10-31 06:44] LABS: CREATININE 1.4 mg/dL (0.7-1.2); POTASSIUM 3.2 mmol/L (3.5-5.1)
[2019-10-31 06:55] LABS: FREE T4 1.27 ng/dL (0.93-1.70); TSH 1.3 uIUmL (0.27-4.20)
[2019-10-31] MEDS: COZAAR PO SCH (08:03)
[2019-10-31] MEDS: CUBICIN 600 MG in NS 100 ML IV SCH (08:03)
[2019-10-31] MEDS: NORVASC PO SCH ×2 (08:03→21:28)
[2019-10-31] MEDS: NEURONTIN PO SCH ×3 (08:03→21:28)
[2019-10-31] MEDS: LOVENOX SUBQ SCH (08:03)
[2019-10-31] MEDS: DEMADEX PO SCH (08:04)
[2019-10-31] MEDS: COREG PO SCH ×2 (08:05→21:28)
[2019-10-31] MEDS ORDERED: MAGNESIUM SULFATE 2 GM/S.W.I. 2 GM/50 ML IVPB IV ONE (10:30)
--- NOTE | 2019-10-31 11:46 | PROGRESS NOTE ---
DATE: 10/31/2019 INTERVAL HISTORY: Yesterday he had started experiencing abdominal pain, and he felt like as if he was about to pass a stone. However, he did not and he started developing hematuria again. His pain did not get better on sublingual hyoscyamine, so he was started on intravenous morphine. However, since midnight he has started feeling better again. We discussed about awaiting final blood culture results, and I answered all of his questions. He denies any chest pain or shortness of breath. He denies any nausea, vomiting or abdominal pain. VITALS: Afebrile, temperature of 98.3 degrees, pulse 77 respiratory rate 15, blood pressure 150/80, saturating 98% on room air. PHYSICAL EXAMINATION: General: Obese. Not in acute distress. Oral cavity: Moist. Lungs: Air entry bilaterally equal. No wheeze, rhonchi, or crackles. Cardiovascular: S1, S2 normal. No murmur, rub, or gallop. He has left-sided chest wall pacemaker. The site does not appear tender or erythematous. Abdomen: Obese, soft, nontender. Extremities: He has mild bilateral lower extremity edema. Neurologic: He is alert and oriented x3. LABS: Suggestive of hypokalemia currently being repleted. Elevation in creatinine. His blood glucose has been within acceptable range, mostly between 250 to 300 over the last 24 hours, though he was hypoglycemic earlier yesterday. Blood cultures are still in lab. IMAGING: Echocardiogram did not have any valvular vegetation, though it was of poor quality. ASSESSMENT AND PLAN: 1. Left distal ureteral stone with left hydronephrosis, status post cystoscopy, lithotripsy, basket stone extraction and left double-J ureteric stent on October 28. Continues to have intermittent hematuria. He also had right-sided 4 mm stone which was nonobstructing. Urology team on board. He would need outpatient Urology follow-up. 2. Acute complicated urinary tract infection due to Staphylococcus epidermidis leading to Staphylococcus epidermidis bacteremia. His antibiotics have been changed to intravenous daptomycin as per Infectious Disease recommendation. Echocardiogram was of poor quality, though it did not have any obvious vegetation. Continue intravenous daptomycin for total of 6 weeks after blood cultures clear up. Follow up blood culture results tomorrow. 3. Acute kidney injury due to postobstructive renal failure due to ureteric stone. Appears stable. Follow up kidney function daily. 4. History of symptomatic bradycardia status post pacemaker. 5. Uncontrolled diabetes mellitus type 2 with hemoglobin A1c of 11.8 with episodes of hyperglycemia and hypoglycemia. Continue current dose of Lantus and sliding scale insulin. My goal is to discharge him on Lantus and oral metformin with outpatient followup. 6. Essential hypertension. Continue home carvedilol, losartan, amlodipine. 7. Hypothyroidism. Continue levothyroxine. His thyroid stimulating hormone and free T4 are within acceptable range. 8. Deep vein thrombosis prophylaxis. He is on enoxaparin. DISPOSITION: I am awaiting final blood culture results to be back on November 01. Based on that, I will consult PICC line for intravenous antibiotic infusion for 6 weeks. He is unsure if he wants to do home infusion versus coming to the hospital every day for infusion. However, at the moment he is willing to learn and get education about home antibiotic infusion. Depending on that, he would decide whether he would be able to administer medications by himself. cc: Pradip Wang MD
[2019-10-31] MEDS: KLOR-CON PO SCH ×2 (12:39→15:54)
--- NOTE | 2019-10-31 14:31 | INFECTIOUS DISEASE PROGRESS NO ---
DATE: 10/31/2019 PRESENT ILLNESS: The patient has a Staphylococcus epidermidis bacteremia which originated from a Staphylococcus epidermidis urinary tract infection. The patient had a stone in the ureter, which caused the urinary tract infection. Dr. Odom has done lithotripsy, and the stone no longer is present. MEDICATIONS: The patient is on daptomycin. This is day 1 of treatment with that antibiotic. PHYSICAL EXAMINATION: Vital Signs: Temperature is 97.8 degrees, pulse is 91, respirations are 19, blood pressure is 188/89. General: This is an obese elderly male. He is in no acute distress. Head/Eyes/Ears/Nose/Throat: He can hear my spoken words and see near objects. He does not have any white coating on his tongue. Neck: No pain with movement. Lungs: Clear to auscultation. Cardiovascular: Heart rate is regular. Abdomen: Soft and nontender. Thorax: The patient in the upper part of his chest has a permanent pacemaker in place. That site is not erythematous or swollen. LAB AND X-RAY: The creatinine is 1.4. GFR is 50. Blood and urine are growing Staphylococcus epidermidis. Repeat blood cultures are pending. ASSESSMENT AND PLAN: The patient has Staphylococcus epidermidis bacteremia originating from a Staphylococcus epidermidis urinary tract infection. I plan on treating the patient for 6 weeks with antibiotics because the patient has a pacemaker in place, which may have become infected hematogenously while the patient was bacteremic. Following that, we will put the patient on an oral antibiotic to prevent any flare-up of the infection. COMORBIDITIES: The patient has diabetes mellitus and renal calculi and some type of cardiac problem that requires the presence of a pacemaker to be placed. cc: Akbar Moreno MD
[2019-10-31] MEDS: LEVEMIR SUBQ SCH (21:29)
[2019-11-01 06:06] LABS: BASO# 0.04 X1000 (0.0-0.2); BASO% 0.4 % (0.0-0.8); EOS% 1.1 % (0.0-10.0); HEMATOCRIT 40.2 % (42.0-52.0); HEMOGLOBIN 13.2 g/dL (14.0-18.0); IMM GRAN# 0.42 X1000 (0.0-0.04); IMM GRAN% 4.7 % (0.0-0.5); LYMPH# 2.13 X1000 (1.2-3.4); LYMPH% 23.8 % (20.5-51.1); MCH 28.4 PG (27-31); MCHC 32.8 g/dL (33-37); MCV 86.6 FL (81-99); MONO# 0.87 X1000 (0.11-0.59); MONO% 9.7 % (1.7-9.3); MPV 9.8 FL (7.4-10.4); NEUT# 5.39 X1000 (1.4-6.5); NEUT% 60.3 % (42.2-75.2); PLT 246 X1000 (130-400); RBC 4.64 XMIL (4.7-6.1); RDW 14.9 % (11.5-14.5); WBC 8.95 X1000 (4.8-10.8)
[2019-11-01] MEDS: HUMALOG SUBQ SCH ×4 (06:13→20:23)
[2019-11-01] MEDS: SYNTHROID PO SCH (06:13)
[2019-11-01 06:19] LABS: INR 1.09; PROTIME 14.2 Seconds (11.0-16.0)
[2019-11-01 06:20] LABS: PTT 41.3 Seconds (22.3-41.8)
[2019-11-01 06:29] LABS: CALCIUM 8.6 mg/dL (8.8-10.2); CREATININE 1.2 mg/dL (0.7-1.2); POTASSIUM 3.1 mmol/L (3.5-5.1)
[2019-11-01] MEDS: CUBICIN 600 MG in NS 100 ML IV SCH (07:19)
[2019-11-01] MEDS: LOVENOX SUBQ SCH (07:19)
--- NOTE | 2019-11-01 08:03 | INFECTIOUS DISEASE PROGRESS NO ---
DATE: 11/01/2019 PRESENT ILLNESS: The patient has a Staph epidermidis bacteremia which originated from a Staph epidermidis urinary tract infection. The urinary tract infection occurred because the patient had a stone in the ureter which has been taken care of by Dr. Odom. MEDICATIONS: This is day 2 of treatment with daptomycin with day 1 being the first day that the repeat blood cultures were sterile. PHYSICAL EXAMINATION: Vital Signs: Temperature is 98.5 degrees, pulse 77, respirations 20, blood pressure 168/88. General: This is an obese, elderly male. He is in no acute distress. Head/eyes/ears/nose/throat: He can hear my spoken words and see near objects. He does not have any white patches in his mouth. Neck: No pain with movement. Lungs: Clear to auscultation. Cardiovascular: Heart rate is regular. Thorax: The patient has a permanent pacemaker in place on the left side. The site is not erythematous or tender. Neurologic: The patient is alert. He is able to ambulate. There is no tremor. LAB AND X-RAY: There is not a new radiographic study for today. The patient's CBC shows a white count of 8950, hemoglobin 13.2, and platelet count 246,000. Creatinine is 1.2, GFR is 60. ASSESSMENT AND PLAN: Patient has a Staphylococcal epidermidis bacteremia and urinary tract infection. I plan on treating the patient for 6 weeks because the patient's pacemaker may have become infected hematogenously while the patient was bacteremic. I discussed with the patient his treatment as to whether he would rather do it at home or come each day to the hospital to the outpatient to get his antibiotic and he chose to do it at home if he has coverage for it. I am going to put in a consult for Social Service to see him and I put down that the antibiotic would be daptomycin 600 mg IV daily x40 days. Following that, the only 2 choices I have if I wanted to put the patient on long-term oral antibiotic to prevent any flareup from remaining infection would be Levaquin or clindamycin and I think with both of those agents, the side effects out way the benefit. For that reason I will stop any further antibiotics when daptomycin is done. Some of the side effects of daptomycin, namely rash, diarrhea and muscle toxicity, have been explained to the patient, who agrees with treatment. My plan is to have the patient come to my office in approximately 20 days and then again at another 20 days which would make the total of 40 days. At that time, we can get the patient's PICC removed. COMORBIDITIES: Include he is elderly, he also has diabetes mellitus and he has renal calculi. cc: Akbar Moreno MD MTDD
[2019-11-01] MEDS: KLOR-CON PO SCH ×2 (08:17→12:18)
[2019-11-01] MEDS: POTASSIUM CHLORIDE 20 MEQ/SWI 20 MEQ/100 ML IVPB IV SCH ×2 (08:17→12:14)
[2019-11-01] MEDS: NORVASC PO SCH ×2 (08:18→20:19)
[2019-11-01] MEDS: NEURONTIN PO SCH ×3 (08:18→16:57)
[2019-11-01] MEDS: COZAAR PO SCH (08:18)
[2019-11-01] MEDS: DEMADEX PO SCH (08:18)
[2019-11-01] MEDS: COREG PO SCH ×2 (08:18→20:18)
[2019-11-01 08:55] LABS: INR 1.07
[2019-11-01] MEDS ORDERED: NS 250 ML ONE (09:25)
[2019-11-01] MEDS ORDERED: NS 500 ML ONE (10:20)
[2019-11-01] MEDS: MAGNESIUM SULFATE 2 GM/S.W.I. 2 GM/50 ML IVPB IV SCH ×2 (10:21→15:08)
--- NOTE | 2019-11-01 13:05 | DISCHARGE SUMMARY ---
ADMISSION DATE: 10/27/2019 DISCHARGE DATE: 11/01/2019 DISCHARGE DISPOSITION: Home with intravenous antibiotics. He is about to get his PICC line. DISCHARGE CONDITION: Hemodynamically stable. He is alert oriented x3. He was provided discharge instructions including follow up with Dr. Moreno, follow up with Dr. Odom as well as follow up with regular doctor taking insulin and taking amlodipine and stopping simvastatin. DISCHARGE DIAGNOSES: 1. Left distal ureteral stone with left hydronephrosis. 2. Acute complicated urinary tract infection due to Staphylococcus epidermidis. 3. Staphylococcus epidermidis bacteremia from acute complicated urinary tract infection. 4. Acute kidney injury due to postobstructive renal failure due to ureteric stone. 5. Uncontrolled diabetes mellitus type 2 with hyperglycemia. 6. Essential hypertension. OTHER DIAGNOSES: 1. History of type 2 diabetes mellitus on metformin, which he stopped taking because of diarrhea. 2. History of hypothyroidism. 3. History of recurrent nephrolithiasis. 4. History of symptomatic bradycardia status post pacemaker. PROCEDURES DURING HOSPITAL ADMISSION: The patient underwent cystoscopy, ureteroscopy of the left upper ureter, left ureteroscopy of the left upper pole ureter with laser lithotripsy, basket extraction of fragments and placement of double-J stent into left upper pole ureter on 10/28/2019, which he tolerated well. Apparently, he had 2 ureters on the left. DISCHARGE MEDICATIONS: 1. Carvedilol 12.5 mg b.i.d. 2. Losartan 100 mg daily, 3. Gabapentin 600 mg t.i.d. 4. Potassium chloride 20 mEq b.i.d. 5. Levothyroxine 150 mcg daily. 6. Torsemide 40 mg daily. 7. Insulin detemir 20 units subcutaneously every night 30 day supply with 1 refill. 8. Amlodipine 10 mg daily. VITALS: At the time of discharge temperature 98.7 degrees, pulse 83, respiratory 24, blood pressure 150/70, saturating 98% room air. PHYSICAL EXAMINATION: General: Mr. Castillo is not in acute distress. No pallor, cyanosis, clubbing, or icterus. Lungs: Air entry bilaterally equal. No wheeze, rhonchi, crackles. Cardiovascular: S1, S2 normal. No murmur or gallop. Abdomen: Soft, nontender. He has left- sided chest wall pacemaker. The site was noninflamed. Extremities: He has mild bilateral lower extremity edema. Neurologic: He was alert and oriented x3. LABS DURING HOSPITAL ADMISSION.: Hemoglobin 13.2, platelets 246,000, potassium of 3.1 being repleted, BUN 13, creatinine 1.2, blood glucose 137, magnesium of 1.5, which is currently being repleted. Microbiology, his 2 blood cultures on October 27 were growing Staphylococcus epidermidis, which was sensitive to vancomycin, resistant to oxacillin and sensitive to levofloxacin. Repeat blood culture on 10/30/2019 did not grow any organism. His urine culture on October 27 was also growing Staphylococcus epidermidis. SIGNIFICANT IMAGING DURING HOSPITAL ADMISSION: 1. Chest x-ray on presentation did not have any acute cardiopulmonary process. 2. Abdomen-pelvis CT scan on October 27 had a obstructing left distal ureteral stone with moderate hydro-ureteral nephrosis, small nonobstructing right renal stone, hepatic steatosis and diverticulosis coli. 3. Echocardiogram on October 29 had ejection fraction of 55% though it was of poor quality did not detect any valvular vegetation. 4. Electrocardiogram on October 27 had sinus rhythm with frequent premature ventricular contractions and had T-wave abnormality in the anterolateral and inferior leads. However, patient did not have any chest pain or known history of coronary artery disease. HOSPITAL COURSE SUMMARY: Mr. Castillo is a 69-year-old man who presented with prior medical history of [id number] diabetes mellitus and nephrolithiasis, who presented on October 27 with chief complaints of abdominal pain, nausea and diaphoresis about 7 days duration. He did not have any chest pain or palpitation. His abdominal pain was located in the left lower quadrant. In the emergency room he received urinalysis in which he had pyuria and he also received CT scan of the abdomen and pelvis which had left-sided ureteric stone causing left- sided hydro-ureteral nephrosis, so he was admitted, was given intravenous antibiotics and urology team was consulted. The patient underwent cystoscopic examination, ureteroscopy and laser lithotripsy with extraction of the stone by urology team, which he tolerated well. Post procedure he did have hematuria, which was improving. His urine culture and blood culture grew Staphylococcus epidermidis and it was thought that he had urosepsis related to ureteric stone and Staphylococcus epidermidis infection. Initially, he was on intravenous vancomycin. After Infectious Disease team's recommendation, it was changed to intravenous daptomycin considering his old age and hearing impairment. His repeat blood cultures came back negative. Patient is about to receive a PICC line and Surveillance Director team is going to work on setting up intravenous daptomycin for him for a total of 6 weeks considering his pacemaker. DISCHARGE INSTRUCTIONS: At the time of discharge, detailed discharge instructions were provided to the patient and all of his questions were satisfactorily answered including diabetes management, following up with primary care provider, Infectious Disease and Urology for stent removal in the future. TIME SPENT AT DISCHARGE: More than 30 minutes of time was spent in taking care of this patient. cc: Pradip Wang MD
[2019-11-01] MEDS: ULTRAM PO PRN (13:19)
[2019-11-01] MEDS: MORPHINE IV PRN ×3 (13:20→22:53)
[2019-11-01] MEDS ORDERED: TYLENOL PO PRN (13:28)
[2019-11-01] MEDS: LABETALOL IV PRN (14:30)
--- NOTE | 2019-11-01 14:54 | Diag Imaging Result Doc PS360 ---
EXAM: CHEST-PORTABLE 11/01/2019 HISTORY: Evaluate for PICC position TECHNIQUE: AP portable upright at 1445 COMMENT: There is a PICC line on the right with its tip in the superior vena cava. The inspiration is suboptimal. Compared to 10/27/2019 there has been no significant change considering differences in technique and inspiration. IMPRESSION: Stable chest. Electronically signed by Nic Bullard 11/01/2019 2:52 PM
[2019-11-01] MEDS: MAXIPIME 2 GM/NS 2 GM/100 ML IVPB IV SCH (15:13)
--- NOTE | 2019-11-01 16:28 | PROGRESS NOTE ---
DATE: 11/01/2019 INTERVAL HISTORY: He got his PICC line in the morning time. The initial plan was to discharge him with IV antibiotics. However, he states that he could not afford home IV daptomycin. He states he would also not be able to come every single day to hospital to get the antibiotics for 6 weeks. I had a discussion with Infectious Disease doctor and the plan we came up was to discharge him on Levaquin orally. However, before he could be discharged, he developed sudden onset fever with temperature of 102 degrees. He was having chills and he suddenly started experiencing extreme pain of bilateral knee joint. I evaluated him immediately. He is complaining of bilateral knee pain and is in a lot of distress. VITALS: Currently temperature of 102 degrees which is not charted yet. Pulse of 82, respiratory rate 20, blood pressure 180/70, saturating 99% room air. PHYSICAL EXAMINATION: General: He is in mild distress because of knee pain. HEENT: Oral cavity is moist. Respiratory: Air entry equal bilaterally. No wheeze rhonchi. Inspiratory crackles, infrascapular region. Cardiovascular: S1, S2 normal. No murmur or gallop. Abdomen: Soft, nontender. He has extreme tenderness of bilateral knee, especially right knee. There is also right knee effusion. LABORATORY DATA: Today, CBC was unremarkable. He does have hypokalemia which is currently being repleted. His hypo magnesium is also currently being repleted. ASSESSMENT AND PLAN: 1. Left distal ureteral stone with left hydronephrosis status post cystoscopy, lithotripsy and basket stone extraction with double-J stent. 2. Sepsis due to Staphylococcus epidermidis due to a complicated urinary tract infection. 3. Acute kidney injury due to postoperative renal failure. 4. Symptomatic bradycardia status post pacemaker. 5. Uncontrolled diabetes mellitus type 2 with hyperglycemia and hypoglycemia. 6. Essential hypertension, hypothyroidism. 7. Bilateral knee pain with right knee effusion which is potentially concerning for stress septic arthritis considering he has significant tenderness on joint movement. However, there is no overlying erythema. PLAN: I will continue intravenous daptomycin and add intravenous cefepime. Consult orthopedic doctor for possible septic arthritis considering his ongoing bacteremia. Continue current dose of long-acting insulin with sliding scale for hyperglycemia. Continue his home medication of torsemide, levothyroxine, losartan, gabapentin and carvedilol for hypertension and peripheral neuropathy. DISPOSITION: I will continue to monitor patient in [facility]. cc: Pradip Wang MD
[2019-11-01] MEDS: LEVEMIR SUBQ SCH (20:19)
[2019-11-02] MEDS: MAXIPIME 2 GM/NS 2 GM/100 ML IVPB IV SCH ×2 (01:37→13:14)
[2019-11-02] MEDS: ULTRAM PO PRN ×2 (03:49→10:02)
[2019-11-02] MEDS: SYNTHROID PO SCH (06:48)
[2019-11-02] MEDS: HUMALOG SUBQ SCH ×4 (06:48→21:45)
[2019-11-02 07:08] LABS: CALCIUM 8.6 mg/dL (8.8-10.2); CREATININE 1.4 mg/dL (0.7-1.2); POTASSIUM 4.1 mmol/L (3.5-5.1)
[2019-11-02] MEDS: LOVENOX SUBQ SCH (07:36)
[2019-11-02] MEDS: CUBICIN 600 MG in NS 100 ML IV SCH (07:36)
[2019-11-02] MEDS: NEURONTIN PO SCH (08:26)
[2019-11-02] MEDS: NORVASC PO SCH (08:26)
[2019-11-02] MEDS: DEMADEX PO SCH (08:27)
[2019-11-02] MEDS: COREG PO SCH ×2 (08:27→22:04)
[2019-11-02] MEDS: COZAAR PO SCH (08:28)
[2019-11-02 11:07] LABS: BASO# 0.04 X1000 (0.0-0.2); BASO% 0.3 % (0.0-0.8); EOS# 0.07 X1000 (0.0-0.7); EOS% 0.6 % (0.0-10.0); HEMATOCRIT 39.3 % (42.0-52.0); HEMOGLOBIN 12.6 g/dL (14.0-18.0); IMM GRAN% 1.7 % (0.0-0.5); LYMPH# 2.52 X1000 (1.2-3.4); LYMPH% 21.1 % (20.5-51.1); MCH 28.4 PG (27-31); MCHC 32.1 g/dL (33-37); MCV 88.7 FL (81-99); MONO# 1.37 X1000 (0.11-0.59); MONO% 11.5 % (1.7-9.3); MPV 9.9 FL (7.4-10.4); NEUT# 7.72 X1000 (1.4-6.5); NEUT% 64.8 % (42.2-75.2); PLT 309 X1000 (130-400); RBC 4.43 XMIL (4.7-6.1); WBC 11.92 X1000 (4.8-10.8)
[2019-11-02] MEDS: COLCRYS PO SCH ×2 (11:39→22:03)
[2019-11-02 12:17] LABS: ALLEN TEST YES; BE 1.4 mmoll (-3.0-3.0); BLOOD TYPE ARTERIAL; HCO3-(ACT) 25.9 mmoll (20.0-26.0); METHB 0.7 % (0.0-1.5); MODALITY ROOM AIR; O2(CT) 16.6 mL/dL (15.0-23.0); O2HB 92.3 % (95.0-99.0); PCO2(98.6) 34 mmHg (35-45); PO2(98.6) 60 mmHg (60-100); SAMPLE BLOOD; SAO2 95.2 % (95.0-100.0); THB 12.8 g/dL (11.5-17.4); pH(98.6) 7.47 (7.35-7.45)
--- NOTE | 2019-11-02 12:35 | PROGRESS NOTE ---
DATE: 11/02/2019 INTERVAL HISTORY: No acute events overnight. The patient's ambulation has significantly decreased because of bilateral knee pain. Orthopedic team had evaluated the patient and suspicion of gout was raised. He also underwent aspiration and arthrocentesis of his left knee joint, which he tolerated okay. SUBJECTIVE: Mr. Castillo appears very drowsy today. He states he ate his breakfast. He denies any chest pain. He denies any shortness of breath or cough. He denies any nausea, vomiting, or abdominal pain. He is persistently complaining of bilateral knee pain. Urine catheter has been placed. VITALS: Temperature of 98.7 degrees, pulse 83, respiratory 20, blood pressure 150/80. He is saturating 94% on room air. PHYSICAL EXAMINATION: He is drowsy. Oral cavity is moist.Lungs: Air entry bilaterally equal. No wheeze, rhonchi, or crackles. Cardiovascular: S1, S2 normal. Not tachycardic. No murmur, rub, or gallop. Abdomen: Distended, soft, nontender, tympanic to percussion. Active bowel sounds. He has mild bilateral lower extremity edema. He does have significant knee joint effusion bilaterally and has a bandage of arthrocentesis on the left knee. He is drowsy but arousable and follows simple commands. LABS: Suggestive of leukocytosis, normocytic anemia, normal platelet count, hyponatremia, hypochloremia. He does have increasing creatinine. His hyperglycemia is currently stable without any episode of hypoglycemia. Microbiology, no positive data. IMAGING: No new imaging except chest x-ray yesterday which did not have any acute pathology. ASSESSMENT AND PLAN: 1. Sepsis with fever of 102, which is not charted in the system with leukocytosis. This could be in the setting of acute gouty arthritis versus acute septic arthritis of bilateral knee joint or it could be worsening ongoing sepsis with Staphylococcus epidermidis. I will follow up with arthrocentesis fluid analysis and repeat blood culture. Continue intravenous daptomycin and intravenous cefepime. Urine catheter has been placed and follow up with repeat urinalysis as well. 2. Drowsiness. This could be in the setting of sepsis that is ongoing. I will get ABG to rule out any hypercapnia and lactic acidosis. He is not in respiratory distress and he is saturating 94% on room air, though appears tachypneic, which could be just related to his body habitus. 3. Left distal ureteral stone with left hydronephrosis status post cystoscopy, lithotripsy, basket stone extraction and double-J ureteric stent on October 28. His urine appears clear at the moment. He also has a right-sided 4 mm stone which is nonobstructing. He would need outpatient Urology follow-up for stent removal. 4. Acute complicated urinary tract infection due to Staphylococcus epidermidis leading to Staphylococcus epidermidis bacteremia. Echocardiogram did not have any vegetation. Continue intravenous daptomycin. The total duration of antibiotics is 6 weeks considering his pacemaker. 5. Kidney dysfunction. He may have chronic kidney dysfunction stage II versus stage IIIA. Monitor his BMP. His post obstructive renal failure appears to have resolved. 6. History of symptomatic bradycardia status post pacemaker is stable; continue current dose of glargine and sliding scale insulin for history of uncontrolled diabetes mellitus type 2; carvedilol, losartan, and amlodipine for essential hypertension; levothyroxine for hypothyroidism. 7. DVT prophylaxis. Continue Lovenox. DISPOSITION: Continue to monitor patient in PVC. Plan of care discussed with him. His questions have been answered. cc: Pradip Wang MD
--- NOTE | 2019-11-02 13:51 | ORTHOPAEDICS CONSULTATION ---
DATE: 11/02/2019 CHIEF COMPLAINT: Bilateral knee pain and swelling and ankle pain. HISTORY OF PRESENT ILLNESS: Mr. Nunes is a 69-year-old male who has been in the hospital for several days, was undergoing a PICC line for Staph epi bacteremia yesterday and suddenly began having swelling and pain in both of his knees. I was asked to see him in orthopedic consultation. He does have a history of gout and states that this feels exactly like his gout attacks that he has had in the past. He has not been on any allopurinol or Uloric while he has been in the hospital. For past medical history, past surgical history, medications, allergies see admission history and physical and hospital record. REVIEW OF SYSTEMS: Negative except as listed above. PHYSICAL EXAM: Reveals a well-nourished male. He is alert, oriented, and cooperative with exam. He has pain with range of motion of his knees. He has a 1-2+ knee effusion bilaterally, appears to be a little worse on the left. He states the left is more painful. Both legs are grossly neurovascularly intact. There is some mild warmth and no significant erythema. IMPRESSION: Bilateral painful knee effusions with possible gout versus septic joint. PLAN: I have aspirated the left knee sterilely. We will send this for Gram stain, culture and sensitivity and cytology with cell count and crystals. We will proceed based upon those results. Thank you for allowing me to participate in Mr. Castillo's care. I will be available throughout the day. cc: Juan Diego Kelly MD
[2019-11-02] MEDS ORDERED: NEURONTIN PO PRN (21:00)
[2019-11-02] MEDS: LEVEMIR SUBQ SCH (21:45)
[2019-11-02] MEDS ORDERED: INSULIN PEN NEEDLES ONE (21:54)
[2019-11-02] MEDS ORDERED: CORDARONE IV ONE (22:05)
--- NOTE | 2019-11-02 22:08 | EKG Report ---
Test Performed on : 11/02/2019 9:48:02 PM Test Reason : Rhythm change on monitor Blood Pressure : / mmHG Vent. Rate : 099 BPM Atrial Rate : 096 BPM P-R Int : 000 ms QRS Dur : 194 ms QT Int : 452 ms P-R-T Axes : 000 -57 101 degrees QTc Int : 580 ms Ventricular-paced rhythm Abnormal ECG When compared with ECG of 27-OCT-2019 12:52, (Unconfirmed) Electronic ventricular pacemaker has replaced Sinus rhythm. Confirmed by Aaron MAHMOOD, Víctor Garnett ([id number]) on 11/04/2019 9:28:44 AM
[2019-11-03] MEDS: MAXIPIME 2 GM/NS 2 GM/100 ML IVPB IV SCH ×2 (01:38→15:07)
[2019-11-03] MEDS: HUMALOG SUBQ SCH ×4 (06:29→21:20)
[2019-11-03] MEDS: SYNTHROID PO SCH (06:39)
[2019-11-03 07:06] LABS: BASO# 0.01 X1000 (0.0-0.2); BASO% 0.1 % (0.0-0.8); CREATININE 1.5 mg/dL (0.7-1.2); EOS# 0.06 X1000 (0.0-0.7); EOS% 0.5 % (0.0-10.0); HEMATOCRIT 35.6 % (42.0-52.0); HEMOGLOBIN 11.6 g/dL (14.0-18.0); IMM GRAN# 0.11 X1000 (0.0-0.04); IMM GRAN% 0.9 % (0.0-0.5); LYMPH# 2.03 X1000 (1.2-3.4); LYMPH% 16.7 % (20.5-51.1); MCH 28.6 PG (27-31); MCHC 32.6 g/dL (33-37); MCV 87.7 FL (81-99); MONO# 1.07 X1000 (0.11-0.59); MONO% 8.8 % (1.7-9.3); MPV 9.5 FL (7.4-10.4); NEUT# 8.86 X1000 (1.4-6.5); PLT 286 X1000 (130-400); POTASSIUM 3.4 mmol/L (3.5-5.1); RBC 4.06 XMIL (4.7-6.1); RDW 14.5 % (11.5-14.5); WBC 12.14 X1000 (4.8-10.8)
[2019-11-03] MEDS: CUBICIN 600 MG in NS 100 ML IV SCH (07:58)
[2019-11-03] MEDS: LOVENOX SUBQ SCH (07:58)
[2019-11-03] MEDS: COREG PO SCH ×2 (07:59→21:19)
[2019-11-03] MEDS: COLCRYS PO SCH ×2 (07:59→21:19)
[2019-11-03] MEDS: NORVASC PO SCH (07:59)
[2019-11-03] MEDS: COZAAR PO SCH (07:59)
[2019-11-03] MEDS: DEMADEX PO SCH (07:59)
--- NOTE | 2019-11-03 10:05 | ORTHOPAEDICS PROGRESS NOTE ---
DATE: 11/03/2019 SUBJECTIVE: César Castillo is a 69-year-old male with bilateral knee effusion and possible sepsis. He states he has not improved since yesterday. OBJECTIVE: He feels about the same. He still continues to have pain with range of motion of his knee, and has effusion in both knees with mild erythema and warmth. His uric acid from yesterday was normal, and his white count is elevated. Therefore, I suspect we will need to proceed with an irrigation and debridement of his knee. His cultures have not come back with anything, but his Gram stain was negative, except positive for white cells. If it does not improve over the course of the day, then tomorrow we will proceed with irrigation debridement arthroscopically of both knees. ASSESSMENT: Bilateral knee effusion with possible septic joints. PLAN: We will plan on proceeding with irrigation and debridement of both knees arthroscopically tomorrow. I have discussed with him, the risks, benefits, and alternatives of this, including but not limited to, bleeding, nerve damage, infection, risk from anesthesia, development of arthritis, continued infection, deep venous thrombosis resulting in pulmonary embolus up to and including loss of limb or life and other imponderables. He voices his understanding. All questions were answered. No guarantees were given. He requests to proceed as planned, and will schedule surgery tomorrow pending the continued culture results and his progress. cc: Juan Diego Kelly MD
--- NOTE | 2019-11-03 10:38 | INFECTIOUS DISEASE PROGRESS NO ---
DATE: 11/03/2019 PRESENT ILLNESS: The patient has Staphylococcus epidermidis bacteremia which originated from a Staphylococcus epidermidis urinary tract infection. The urinary tract infection occurred because the patient had a ureteral stone which has been taken care of by Dr. Odom. The patient now has developed swelling in both knees and on aspiration of the knee, white blood cells were seen but no organisms were seen. The culture is pending. MEDICATIONS: This is day 4 of treatment with daptomycin with day 1 being the first day that the repeat blood cultures were sterile. Dr. Wang has added cefepime because the patient had fever. This is day 2 of treatment with cefepime. PHYSICAL EXAMINATION: Vital Signs: Temperature is 98.2 degrees, pulse 79, respirations 18, blood pressure 125/54. General: This is an ill-appearing, elderly male. He is in no acute distress, just lying in bed. Head, Eyes, Ears, Nose, and Throat: He can hear my spoken words and see near objects. He does not have any white coating on his tongue. Neck: No pain with movement. Lungs: Clear to auscultation. Cardiovascular: Heart rate is regular. Thorax: The patient has a pacemaker present on the left upper part of the chest. The site is not erythematous or swollen. Bones, Joints, Muscles: Both knees appear to have fluid and also with any movement of the knee, it causes the patient pain. Neurologic: The patient is lethargic but he is arousable. LAB AND X-RAY: Chest x-ray shows no infiltrate. As I mentioned above, aspirate from the left knee showed white cells but no bacteria and the culture is pending. The CBC shows a white count of 12,140, hemoglobin 11.6, platelet count 286,000. Creatinine is 1.5. GFR is 47. ASSESSMENT AND PLAN: The patient had Staphylococcus epidermidis bacteremia which originated from a Staphylococcus epidermidis urinary tract infection. Now, the patient's knees have become swollen and painful with any movement. Possibly, both knees became infected hematogenously while the patient was bacteremic. Also, I agree with Dr. Wang that gout is a diagnostic possibility also. I plan on continuing the daptomycin and I think it was a good idea to add cefepime per Dr. Wang, pending culture results. I plan to treat the patient for his Staphylococcus epidermidis bacteremia for 6 weeks in case the patient's pacemaker may have become infected hematogenously while the patient is bacteremic. Also, if the patient does have septic arthritis, then 6 weeks of treatment would also be necessary. COMORBIDITIES: The patient is elderly. He has diabetes mellitus and renal calculi. cc: Akbar Moreno MD MTDD
--- NOTE | 2019-11-03 11:03 | PROGRESS NOTE ---
DATE: 11/03/2019 INTERVAL HISTORY: No acute events overnight. Mr. Castillo says he is still not feeling well. He denies any specific complaints, but states his knees hurt and he has not been able to stand up. OBJECTIVE: Vital Signs: Temperature 98.2 degrees, pulse 74, respiratory rate 18, blood pressure 120/50, saturating 98% on 2 L nasal cannula. HEENT: Oral cavity is dry. Lungs: Air entry bilaterally equal. No wheeze or rhonchi. Mild crackles in infrascapular region. Heart: S1, S2 normal. Not tachycardic. No murmur or gallop. Abdomen: Soft, nontender. Extremities: He has bilateral knee effusion and tenderness to any movement. Input and output -300 mL. He has not had any recorded bowel movement, for which I started him on suppositories. He also has worsening leukocytosis. Normal hemoglobin, normal platelet count. BMP suggests hypokalemia and worsening kidney function. Considering that, I will stop his torsemide at the moment, which is his home medication. His blood glucoses are within acceptable range. He was ordered a dose of intravenous amiodarone overnight, which I am not aware of. ASSESSMENT AND PLAN: 1. Sepsis and worsening leukocytosis. Could be in the setting of acute gouty arthritis versus acute septic arthritis of bilateral knee joints. His uric acid level is normal. Follow up final arthrocentesis fluid analysis. Continue intravenous daptomycin and intravenous cefepime. Repeat urinalysis unfortunately was not performed. 2. Drowsiness in the setting of sepsis, which is ongoing, now improved. 3. Left distal ureteral stone with left hydronephrosis, status post cystoscopy, lithotripsy, basket stone extraction, and double-J ureteric stent on 10/28/2019. His urine appears clear. He would have outpatient Urology followup. 4. Acute complicated urinary tract infection with Staphylococcus epidermidis. Continue intravenous daptomycin for a total of 6 weeks considering his pacemaker and bacteremia. 5. Kidney dysfunction. Could be related to his use of torsemide, which I will stop. 6. History of symptomatic bradycardia, status post pacemaker. Currently stable. 7. Deep venous thrombosis prophylaxis. Continue Lovenox. 8. Constipation. Start the patient on bisacodyl. 9. Disposition. Monitor the patient in PVC. Plan of care discussed with the patient. His questions have been answered. cc: Pradip Wang MD
[2019-11-03 11:13] LABS: BANDS 4 % (0-1); LYMPHS 14 % (21-51); MONO 8 % (1-9); SEGS 74 % (42-75)
[2019-11-03] MEDS: MIRALAX PO SCH ×2 (12:03→21:20)
[2019-11-03] MEDS: DULCOLAX PR SCH ×2 (12:03→21:20)
[2019-11-03] MEDS: ULTRAM PO PRN ×2 (12:05→19:07)
[2019-11-03 13:44] LABS: BODY FLUID SOURCE SYNOVIAL FLUID; WBC BF 35400 /cumm
[2019-11-03 13:45] LABS: MONOS 4 %; POLYS 96 %
[2019-11-03] MEDS: LEVEMIR SUBQ SCH (21:20)
[2019-11-04] MEDS: HUMALOG SUBQ SCH ×4 (06:17→20:47)
[2019-11-04] MEDS: SYNTHROID PO SCH (06:20)
[2019-11-04] MEDS: CUBICIN 600 MG in NS 100 ML IV SCH (08:40)
[2019-11-04] MEDS: MAXIPIME 2 GM/NS 2 GM/100 ML IVPB IV SCH ×2 (08:41→20:47)
--- NOTE | 2019-11-04 09:04 | INFECTIOUS DISEASE PROGRESS NO ---
DATE: 11/04/2019 PRESENT ILLNESS: The patient has a Staph epidermidis bacteremia originating from a Staph epidermidis urinary tract infection, which occurred because the patient had a ureteral stone which has been taken care of by Dr. Odom. The patient appears now to have bilateral septic knee arthritis. This could have occurred hematogenously while the patient was bacteremic with Staph epidermidis. MEDICATIONS: This is day 5 of daptomycin and day 3 of treatment with cefepime. PHYSICAL EXAMINATION: Vital Signs: Temperature is 98.9 degrees, pulse 69, respirations 15, blood pressure 125/60. General: This is an ill-appearing elderly male. He is in no acute distress. He did say last night he was diaphoretic, but he did not have fever. Head/eyes/ears/nose/throat: He can hear my spoken words and see near objects. He does not have any white patches in his mouth. Neck: No pain with movement. Lungs: Clear to auscultation. Cardiovascular: Regular heart rate. Thorax: Patient has a left-sided pacemaker in his chest. The site is not erythematous or purulent. Bones/joints/muscles: The right knee is much less swollen than the left knee. Neurologic: Patient is alert. He can move his extremities. It does hurt him to bend his knees. There is no tremor. LAB AND X-RAY: Culture from the left knee is sterile. The patient's synovial fluid had a white blood cell count of 35,400, white blood cells of which 96% were polymorphonuclear. The test for determining if crystals are present is pending. ASSESSMENT AND PLAN: Patient has Staphylococcus epidermidis bacteremia, a Staphylococcus epidermidis urinary tract infection, and he may have knees that became infected hematogenously while the patient had his bacteremia. The plan now is to continue with daptomycin and cefepime, and the patient is scheduled today to have both knees irrigated in surgery. Overall, I plan to treat the patient for 6 weeks because his pacemaker may have become infected hematogenously while the patient was bacteremic. Also, it appears that the patient may have septic knee arthritis, which also would require a 6-week treatment course. For today, there were no new labs such as CBC, BMP, and CK was ordered, and I am going to go ahead and for tomorrow get a CBC, BMP, and CK. Also hopefully the search for crystals in the synovial fluid will be back. COMORBIDITIES: The patient is elderly and he is a diabetic. He also has renal calculi. cc: Akbar Moreno MD
[2019-11-04] MEDS ORDERED: DIPRIVAN 1% ONE (09:33)
[2019-11-04] MEDS ORDERED: XYLOCAINE-MPF 2% ONE (09:34)
[2019-11-04] MEDS ORDERED: OFIRMEV 1000 MG/ISOTONIC SOLN 1,000 MG/100 ML BOTTLE ONE (11:19)
[2019-11-04] MEDS ORDERED: ZOFRAN ONE (11:19)
[2019-11-04] MEDS ORDERED: MORPHINE ONE (11:27)
[2019-11-04] MEDS ORDERED: NORCO-7.5 ONE (13:07)
[2019-11-04] MEDS: NORCO-7.5 PO PRN (13:08)
[2019-11-04] MEDS: COZAAR PO SCH (14:08)
[2019-11-04] MEDS: NORVASC PO SCH (14:08)
[2019-11-04] MEDS: COLCRYS PO SCH ×2 (14:08→20:47)
[2019-11-04] MEDS: MIRALAX PO SCH ×2 (14:08→20:48)
[2019-11-04] MEDS: COREG PO SCH ×2 (14:08→20:47)
[2019-11-04] MEDS: DULCOLAX PR SCH ×2 (14:09→20:48)
[2019-11-04] MEDS: LOVENOX SUBQ SCH (14:09)
--- NOTE | 2019-11-04 14:28 | OPERATIVE NOTE ---
PROCEDURE DATE: 11/04/2019 PREOPERATIVE DIAGNOSIS: Bilateral knee painful effusion with possible septic joints. POSTOPERATIVE DIAGNOSIS: Bilateral knee painful effusion with possible septic joints. PROCEDURE: Bilateral knee arthroscopic lavage. ANESTHESIA: General. SURGEON: Juan Diego Kelly MD. DEPUTY CHIEF MAGISTRATE: Robbie Huggins RN. COMPLICATIONS: None. BLOOD LOSS: Minimal. TOURNIQUET TIME: Approximately 20 minutes each. DESCRIPTION OF PROCEDURE: Patient was brought to the operative suite and placed in the supine position. After successful administration of general anesthesia, bilateral proximal thigh tourniquets were placed and bilateral lower extremities were prepped and draped in the usual sterile fashion. Beginning at the left knee, through a lateral arthroscopy portal, a trocar was entered. Cultures were obtained and the fluid was sent for body fluid analysis. Then, through the medial portal, the knee was copiously irrigated and it was debrided of some mild crystalline material. No loc purulent material was obtained. The knee was copiously irrigated with normal saline. The knee was then exsanguinated and the incisions were closed with interrupted nylon and then a sterile dressing was applied. Attention was then directed to the right knee. It was repeated through a lateral arthroscopy portal. A cannula was placed. Cultures were obtained. Fluid was sent for body fluid analysis. The knee was serially examined. Then through the medial and lateral portal, the knee was copiously irrigated with normal saline containing irrigant. Then the knee was exsanguinated. The incisions were closed with interrupted nylon and a sterile dressing applied. The patient tolerated the procedure well without complication. At the end of the procedure all counts correct x2. The patient was transferred to the recovery room in stable condition. cc: Juan Diego Kelly MD
--- NOTE | 2019-11-04 17:38 | PROGRESS NOTE ---
DATE: 11/04/2019 INTERVAL HISTORY: He underwent arthroscopic irrigation of the knee today by the Orthopedic team bilaterally for possible septic joint, which he tolerated well. SUBJECTIVE: He is feeling better. He states his knee pain has significantly decreased. His son is at bedside. He denies any chest pain, shortness of breath, or cough. VITAL SIGNS: Temperature 97.5 degrees, pulse 63, respiratory rate 19, blood pressure 149/83 saturating 98% on 2 L nasal cannula. PHYSICAL EXAMINATION: General: Not in acute distress, obese. HEENT: Oral cavity is moist. Lungs: Air entry bilaterally equal. No wheeze or rhonchi. Mild crackles in the infrascapular region. Cardiovascular: S1, S2 normal. No murmur, rub, or gallop. Not tachycardic. Abdomen: Soft, nontender. Extremities: He has a bandage of bilateral knees because of recent arthroscopy. Otherwise, pulses are equal bilaterally, dorsalis pedis. Neurologic: He is alert and oriented x3. LABS: No CBC or BMP today, which I will repeat tomorrow. MICROBIOLOGY: No new data at the moment. ASSESSMENT AND PLAN: 1. Recurrent sepsis. This time it could be related to acute septic arthritis, though arthrocentesis fluid detected WBC less than 50,000. He has been on antibiotics for several days before that was performed. Follow up fluid analysis performed after arthroscopy. Continue intravenous daptomycin and intravenous cefepime. Appreciate Infectious Disease's recommendation. 2. Left distal ureteral stone with left hydronephrosis, status post cystoscopy, lithotripsy, basket stone extraction, and double-J ureteric stent on October 28. His urine has cleared. He will need outpatient Urology follow-up. 3. Acute complicated urinary tract infection with Staphylococcus epidermidis leading to Staphylococcus epidermidis bacteremia. Continue intravenous daptomycin for a total of 6 weeks considering pacemaker. 4. Kidney dysfunction. I will follow up with BMP tomorrow. 5. History of symptomatic bradycardia, status post pacemaker, currently stable; deep vein thrombosis prophylaxis, on Lovenox; constipation has resolved on bisacodyl. DISPOSITION: Continue to monitor patient inside PVC unit and if he is hemodynamically stable my plan is to send him to routine medical floor tomorrow. In brief, Mr. Castillo had initially presented on October 27, 2019 with a chief complaint of abdominal pain and on CT scan he was found to have a left-sided distal ureter stone leading to moderate hydronephrosis. He also had a urine infection and sepsis. The bacteria both in urine and blood detected Staphylococcus epidermidis, so he was on intravenous antibiotics and underwent urologic intervention and the initial plan was to discharge him. However, on the date of planned discharge, he developed acute bilateral knee pain, so the discharge was held. It appears that his acute knee pain was related to either gouty arthritis versus septic arthritis and he underwent arthrocentesis initially and now arthroscopy on November 04. Physical therapy will evaluate the patient hopefully in 24 hours. Based on that, most likely he will go home with home physical therapy. He was not willing to pay out of pocket for intravenous daptomycin for 6 weeks and he was not willing to come to the hospital for IV antibiotics for a total of 6 weeks considering [*] issues. I will ask Medical Claims Processor to provide the patient some details of cost associated with intravenous daptomycin for 2 weeks and 4 weeks if he has to come to the hospital every day for 2 weeks or 4 weeks and he could potentially complete the remaining course of antibiotics through oral Levaquin. Plan of care discussed with the patient and his questions have been answered. cc: Pradip Wang MD
[2019-11-04] MEDS: LEVEMIR SUBQ SCH (20:47)
[2019-11-05] MEDS: HUMALOG SUBQ SCH ×4 (06:23→21:12)
[2019-11-05] MEDS: SYNTHROID PO SCH (06:23)
[2019-11-05 06:35] LABS: CALCIUM 8.8 mg/dL (8.8-10.2); CREATININE 1.3 mg/dL (0.7-1.2); POTASSIUM 3.6 mmol/L (3.5-5.1)
[2019-11-05 07:09] LABS: BASO# 0.02 X1000 (0.0-0.2); BASO% 0.2 % (0.0-0.8); EOS# 0.35 X1000 (0.0-0.7); HEMATOCRIT 37.4 % (42.0-52.0); IMM GRAN# 0.08 X1000 (0.0-0.04); IMM GRAN% 0.9 % (0.0-0.5); LYMPH# 1.45 X1000 (1.2-3.4); LYMPH% 16.7 % (20.5-51.1); MCH 28.2 PG (27-31); MCHC 32.1 g/dL (33-37); MCV 87.8 FL (81-99); MONO# 0.66 X1000 (0.11-0.59); MONO% 7.6 % (1.7-9.3); MPV 9.7 FL (7.4-10.4); NEUT# 6.12 X1000 (1.4-6.5); NEUT% 70.6 % (42.2-75.2); PLT 350 X1000 (130-400); RBC 4.26 XMIL (4.7-6.1); RDW 14.4 % (11.5-14.5); WBC 8.68 X1000 (4.8-10.8)
[2019-11-05] MEDS: MAXIPIME 2 GM/NS 2 GM/100 ML IVPB IV SCH ×2 (09:10→21:11)
[2019-11-05] MEDS: COREG PO SCH ×2 (09:11→21:11)
[2019-11-05] MEDS: CUBICIN 600 MG in NS 100 ML IV SCH (09:11)
[2019-11-05] MEDS: NORVASC PO SCH (09:11)
[2019-11-05] MEDS: COZAAR PO SCH (09:11)
[2019-11-05] MEDS: COLCRYS PO SCH ×2 (09:11→21:11)
[2019-11-05] MEDS: DULCOLAX PR SCH ×2 (09:12→21:11)
[2019-11-05] MEDS: MIRALAX PO SCH ×2 (09:12→21:11)
[2019-11-05] MEDS: LOVENOX SUBQ SCH (09:12)
--- NOTE | 2019-11-05 14:50 | INFECTIOUS DISEASE PROGRESS NO ---
DATE: 11/05/2019 PRESENT ILLNESS: The patient has a Staphylococcus epidermidis bacteremia originating from a Staphylococcus epidermidis urinary tract infection which occurred because the patient had a ureteral stone which has been taken care of by Dr. Odom. The patient developed swelling in both knees and pain with movement and it was felt that the knees could have become infected hematogenously while the patient was bacteremic. He had both knees irrigated yesterday by Dr. Kelly. He said that he did not see any definite purulence. However, the patient has been on antibiotics for quite a while. The patient's synovial fluid was 35,400 and usually with septic arthritis the white blood cell count is 50,000 or higher. However, it should be noted that the patient was on antibiotics prior to getting the fluid and that is why the white count may have been less than 50,000 and also 96% of the white blood cells were polymorphonuclear. MEDICATIONS: This is day 6 of treatment with daptomycin and day 4 of treatment with cefepime. PHYSICAL EXAMINATION: Vital Signs: Temperature is 97.7 degrees, pulse 70, respirations 17, blood pressure is 162/86. General: This is an ill-appearing elderly male. He is in no acute distress. He is lethargic. Head, eyes, ears, nose and throat: No drainage noted from the nose or the ears. Neck: No pain with passive movement of the neck. Lungs: Clear to auscultation. Cardiovascular: Heart rate is regular. Thorax: The patient has a left-sided pacemaker in his chest. The site is not erythematous or purulent. Bones, joints, muscles: Both knees have large dressings around them. Neurologic: As mentioned today. The patient is lethargic. He does not have a tremor. LAB AND X-RAY: The patient's creatinine is 1.3, GFR is 55. A CBC was ordered but is not back yet. The synovial fluid which was obtained by irrigating the knees is pending the results of culture and Gram stain. The CBC for today is pending. CK for today is 214. ASSESSMENT AND PLAN: The patient has Staphylococcus epidermidis bacteremia, urinary tract infection and possible bilateral septic knee arthritis. My plan is to treat the patient for 6 weeks with daptomycin because he may have septic knee arthritis and he does have a pacemaker in place which could have become infected hematogenously when the patient was bacteremic. My plan is to stop the cefepime because it does not appear that there is any infection that antibiotic is needed for now. COMORBIDITIES: The patient is elderly. He is a diabetic and he has renal calculi. cc: Akbar Moreno MD
[2019-11-05] MEDS: NORCO-7.5 PO PRN (14:57)
--- NOTE | 2019-11-05 15:42 | ORTHOPAEDICS PROGRESS NOTE ---
DATE: 11/05/2019 SUBJECTIVE: César Castillo is a 79-year-old male who is postoperative day 1 from I D and arthroscopic lavage of bilateral knees. He states his knees still hurt, and he is feeling better. OBJECTIVE: He is a well-developed, well-nourished male. He is alert, oriented, and cooperative on exam. Examination of his knees reveal they are elevated with ice. Dressings are clean, dry, intact. His legs are neurovascularly intact. ASSESSMENT: Stable bilateral knee arthroscopy. PLAN: We will get Physical Therapy to work with him today. So far, his cultures and body fluid analysis have been negative. He will likely go home later in the week hopefully. cc: Juan Diego Kelly MD
[2019-11-05] MEDS: LEVEMIR SUBQ SCH (21:12)
[2019-11-05] MEDS ORDERED: INSULIN PEN NEEDLES ONE (21:37)
--- NOTE | 2019-11-06 00:44 | PROGRESS NOTE ---
DATE: 11/05/2019 SUBJECTIVE: The patient is sitting up in a chair. He has no complaints. OBJECTIVE: Vital Signs: Temperature 97.2 degrees, blood pressure 177/91, heart rate 88, respirations 18, O2 saturation is 97% on room air. General: This is a morbidly obese male sitting up in a chair in no acute distress. Heart: S1, S2 normal. Regular rate and rhythm. Lungs: Clear to auscultation bilaterally. Abdomen: Positive bowel sounds. Soft, nontender, nondistended. Extremities: Both legs are wrapped in Tyshawn bandages. Neurologic: The patient is alert and oriented x4. LABORATORY DATA: Hemoglobin 12, hematocrit 37, platelets 350,000. Sodium 137, potassium 3.6, BUN 19, creatinine 1.3, glucose 211, calcium 8.8. CK 214. ASSESSMENT AND PLAN: 1. Sepsis, slowly improving. So far the cultures from the bilateral knee arthroscopic lavage remain negative. Continue with antibiotic therapy as directed by Dr. Moreno. 2. Bilateral knee septic arthritis. Continue with antibiotic therapy. We will continue to follow up on the culture results. Management as per ID and Orthopedic Surgery. 3. Bacteremia secondary to Staphylococcus epidermidis. Continue on the current antibiotic regimen. The patient will require 6 weeks of antibiotic therapy. I discussed the possibility of LTAC placement with the patient and he is in agreement with going to LTAC. 4. Urinary tract infection secondary to Staphylococcus epidermidis. Continue with antibiotic therapy. 5. Status post cystoscopy with left ureteroscopy with laser lithotripsy and double-J stent placement. Stable. The patient's urine output remains excellent. 6. Morbid obesity. Aware. 7. Diabetic ketoacidosis. Resolved. 8. Insulin-dependent diabetes mellitus. Continue on Levemir. 9. Hypothyroidism. Continue on Synthroid. 10. Deep vein thrombosis prophylaxis. Continue on Lovenox. cc: Jyoti Pierce MD
[2019-11-06] MEDS: HUMALOG SUBQ SCH ×2 (06:46→11:08)
[2019-11-06] MEDS: SYNTHROID PO SCH (06:47)
[2019-11-06 08:02] VITALS: BP 157/86
[2019-11-06] MEDS: CUBICIN 600 MG in NS 100 ML IV SCH (08:45)
[2019-11-06] MEDS: NORVASC PO SCH (08:47)
[2019-11-06] MEDS: COLCRYS PO SCH (08:47)
[2019-11-06] MEDS: COZAAR PO SCH (08:47)
[2019-11-06] MEDS: LOVENOX SUBQ SCH (08:48)
[2019-11-06] MEDS: COREG PO SCH (08:48)
[2019-11-06] MEDS: MAXIPIME 2 GM/NS 2 GM/100 ML IVPB IV SCH (09:59)
[2019-11-06] MEDS: DULCOLAX PR SCH (10:00)
[2019-11-06] MEDS: MIRALAX PO SCH (10:00)
--- NOTE | 2019-11-06 17:53 | INFECTIOUS DISEASE PROGRESS NO ---
DATE: 11/06/2019 PRESENT ILLNESS: The patient has a Staphylococcus epidermidis bacteremia originating from a Staphylococcus epidermidis urinary tract infection. It appears that the patient has bilateral septic knee arthritis. Also, it is a possibility that the patient's pacemaker implanted in his chest has become infected. Both the knees and the pacemaker could have become infected hematogenously while the patient was bacteremic. MEDICATIONS: The patient is receiving daptomycin and cefepime. PHYSICAL EXAMINATION: Vital Signs: Temperature is 97.9 degrees, pulse 74, respirations 16, blood pressure is 157/86. General: This is an ill-appearing elderly male. He is in no acute distress. Head/eyes/ears/nose/throat: He can hear my spoken words and see near objects. He does not have any white patches on his tongue. Neck: No stiffness. Lungs: Clear to auscultation. Cardiovascular: Heart rate is regular. Thorax: Patient has a left-sided pacemaker in place. The site is not erythematous or purulent. Bones/joints/muscles: The patient has bilateral dressings around both knees. Neurologic: The patient is alert today and talks in a coherent fashion. He can move all of his extremities. Extremities: The patient's PICC in his right arm is not erythematous or purulent where the PICC is placed. LABORATORY AND X-RAY: CBC shows a white count of 8680, hemoglobin 12, platelet count 350,000. Creatinine is 1.3. GFR is 55. The patient's CK is 214. There is still no growth from the cultures taken from the patient's knees. ASSESSMENT AND PLAN: The patient will be going home today. He will be coming to the outpatient clinic for 5 more weeks of IV daptomycin. I have requested that the patient come to my office for a checkup in 2-1/2 weeks and then again at 5 weeks. COMORBIDITIES: Patient is elderly. He is a diabetic and he has renal calculi. cc: Akbar Moreno MD
--- NOTE | 2019-11-17 08:45 | DISCHARGE SUMMARY ---
ADMISSION DATE: 10/27/2019 DISCHARGE DATE: 11/06/2019 FINAL DISCHARGE DIAGNOSES: 1. Sepsis. 2. Bacteremia secondary to Staphylococcus epidermidis. 3. Bilateral septic arthritis of the knee. 4. Urinary tract infection secondary to Staphylococcus epidermidis. 5. Status post cystoscopy with left ureteroscopy with laser lithotripsy and double J stent placement. 6. Morbid obesity. 7. Diabetic ketoacidosis (DKA). 8. Insulin-dependent diabetes mellitus. 9. Hypothyroidism. 10. Hypertension. 11. Acute kidney injury. CONSULTATIONS: 1. Urology consultation with Dr. Odom. 2. ID consultation with Dr. Moreno. 3. Orthopedic consultation with Dr. Kelly. PROCEDURES: 1. Cystoscopy with ureteroscopy of the left upper ureter and left ureteroscopy with double-J stent, performed on 10/28/2019. 2. Bilateral knee arthroscopic lavage, performed on 11/04/2019. HOSPITAL COURSE: Mr. Castillo is a 69-year-old male with a history of multiple medical problems who initially presented to the ER with a chief complaint of abdominal pain and diarrhea. On admission, a CT of the abdomen and pelvis was done that revealed an obstructing left distal ureteral stone with moderate hydroureteronephrosis. The patient was admitted to the hospitalist service. Blood cultures and a urinalysis were done and the patient was started on IV fluids and broad-spectrum antibiotics. Urology was also consulted. The patient was taken to the OR on 10/28/2019, at which time a cystoscopy was performed with ureteroscopy of the left upper ureter, laser lithotripsy, as well as a double-J stent was done. The blood cultures grew out Staphylococcus epidermidis and the urine culture grew out Staphylococcus epidermidis as well. ID was consulted for further recommendations. The patient was noted to be in DKA on admission and was initially started on DKA protocol. The patient's gap closed and the patient was then transitioned to subcutaneous insulin. The patient slowly started to improve. However, a few days later the patient was noted to be very confused and appeared to be suffering from sepsis. He was noted to have swelling in both knees as well as warmth and erythema. Orthopedic surgery was consulted due to a concern of possible septic arthritis to both knees. The patient was taken to the OR on 11/04/2019 and underwent bilateral knee arthroscopic lavage. The cultures from the fluid during the lavage were noted to be negative after 5 days. However, it was recommended by Dr. Moreno that the patient be treated with antibiotics for a total of five more weeks. The patient was switched to IV daptomycin, which the patient will be coming to the outpatient clinic for to receive for the next 5 weeks. The patient has been advised to follow up with Dr. Moreno in 2-1/2 weeks and then again at the completion of the 5 weeks of daptomycin. DISCHARGE MEDICATIONS: 1. Norvasc 10 mg p.o. daily. 2. Coreg 12.5 mg oral twice a day. 3. Daptomycin 600 mg IV every 24 hours x5 weeks. 4. Gabapentin 600 mg p.o. 3 times a day. 5. [place] 7.5/325 one tab oral every 6 hours p.r.n. for pain. 6. Levemir 20 units subcutaneous at bedtime. 7. Synthroid 150 mcg oral daily. 8. Cozaar 1 tablet oral daily. 9. MiraLAX 17 g oral daily. 10. Klor-Con 1 tab oral twice a day. 11. Torsemide 2 tablets oral daily. DISCHARGE DIET: An 1800 ADA diet. ACTIVITY: As tolerated. FOLLOWUP INSTRUCTIONS: The patient will need to follow up with Dr. Odom on 11/22/2019. The patient will need to follow up with Dr. Kelly on 11/14/2019. The patient will need to follow up with Dr. Akbar Moreno on 11/26/2019. cc: Jyoti Pierce MD
== END 2019-11-06 13:20 | disposition home health service (06) | DRG 853 ==
LOC: ED 10:04 → 2N 17:19 → SUATTDRO 17:19
PROVIDERS: ATTEND Internal Medicine